=== PATIENT | female | born 1930 | race Caucasian/White ===

== ENCOUNTER 2017-05-14 09:33 | Inpatient (IN) | payer MEDICARE, OTHER ==
[~2017-05-14] VITALS: Ht 162.6 cm; Wt 81.6 kg
[2017-05-14 09:34] VITALS: BP 128/58
[2017-05-14] MEDS ORDERED: VESICARE 5 MG TA5 M1 PO (09:45)
[2017-05-14] MEDS ORDERED: HYDROCHLOROTH12.5 M1 PO (09:45)
[2017-05-14] MEDS ORDERED: LOPRESSOR50 PO (09:45)
[2017-05-14] MEDS ORDERED: MECLIZINE HCL25 MG PO (09:46)
[2017-05-14] MEDS ORDERED: OMEPRAZOLE 20 M20 M1 PO (09:46)
[2017-05-14] MEDS ORDERED: BACLOFEN 10MG T10 MG PO (09:46)
[2017-05-14] MEDS ORDERED: ZOCOR20 MG PO (09:46)
[2017-05-14] MEDS ORDERED: FLONASE 0.05%50 MCG NASAL (09:47)
[2017-05-14] MEDS ORDERED: ARTHRITIS PAIN650 M3 PO (09:47)
[2017-05-14] MEDS ORDERED: ASPIR 8181 M1 PO (09:47)
[2017-05-14 11:00] LABS: HEMATOCRIT 38.4 % (37.0-47.0); HEMOGLOBIN 13.1 gm/dL (12.0-15.0); MCH 32.2 pg (26.0-34.0); MCHC 34.1 g/dL (28.0-37.0); MCV 94.6 fL (80.0-100.0); MPV 7.8 fl. (7.2-11.1); NUCLEATED RBCS 0 /100WBC; PLATELET COUNT* 189 thou/uL (150-400); RBC 4.06 mil/uL (4.20-5.00); RDW-CV 13.6 % (10.5-14.5); WBC 7.4 thou/uL (4.0-11.0)
[2017-05-14 11:08] LABS: ANION GAP 7 mmol/L (7-16); BUN 22 mg/dL (7-18); CALCIUM 8.7 mg/dL (8.5-10.1); CHLORIDE 103 mmol/L (98-107); CO2 29 mmol/L (21-32); GLUCOSE 110 mg/dL (70-99); POTASSIUM 3.9 mmol/L (3.5-5.1); SODIUM 139 mmol/L (136-145)
[2017-05-14 11:09] LABS: APTT 24.3 Seconds (25.0-31.3); INR 1.1; PROTIME 10.5 Seconds (9.20-11.50)
[2017-05-14 11:15] LABS: ABSOLUTE EOSINOPHILS 0.1 thou/uL (0.0-0.7); ABSOLUTE LYMPHOCYTES 0.7 thou/uL (0.8-5.3); ABSOLUTE MONOCYTES 0.7 thou/uL (0.0-1.2); ABSOLUTE NEUTROPHILS 5.9 thou/uL (1.6-8.1); PLATELET ESTIMATE ADEQUATE
[2017-05-14 11:20] LABS: ALBUMIN 3.3 g/dL (3.4-5.0); ALKALINE PHOSPHATASE 48 U/L (46-116); NT-PRO BRAIN NAT PEPTIDE 2325 pg/mL (<300); SGOT 18 U/L (15-37); SGPT 21 U/L (30-65); TOTAL BILIRUBIN 0.7 mg/dL (<0.1-1.0); TOTAL PROTEIN 6.1 g/dL (6.4-8.2); TROPONIN-I LEVEL <0.06 ng/mL (<0.06)
--- NOTE | 2017-05-14 11:34 | NUR ---
PT WAS BROUGHT [id number] UPON REQUEST TO OBTAIN URINE SAMPLE.
[2017-05-14 11:47] LABS: URINE BILIRUBIN NEGATIVE (Negative); URINE BLOOD TRACE (Negative); URINE COLOR YELLOW; URINE GLUCOSE-RANDOM NEGATIVE (Negative); URINE KETONES NEGATIVE (Negative); URINE LEUKOCYTES-REFLEX 1+ (Negative); URINE NITRITE-REFLEX NEGATIVE (Negative); URINE PROTEIN NEGATIVE (Negative); URINE SPECIFIC GRAVITY >= 1.030 (1.005-1.030); URINE UROBILINOGEN 0.2 E.U./dl (0.2-1.0)
[2017-05-14 11:48] LABS: URINE CLARITY SL CLOUDY
[2017-05-14 11:57] LABS: BACTERIA-REFLEX >30 Many /HPF (None Seen); SQUAMOUS >10 Many /LPF (0-3)
[2017-05-14 11:58] LABS: CRYSTALS None Seen /LPF (None Seen); HYALINE CASTS 0-3 Few /LPF (None Seen); URINE RBC None Seen /HPF (0-2)
--- NOTE | 2017-05-14 12:30 | NUR ---
PT BROUGHT MEAL TRAY FROM DIETARY
[2017-05-14 14:52] VITALS: BP 151/64
[2017-05-14 15:21] VITALS: BP 189/82
--- NOTE | 2017-05-14 16:26 | NUR ---
PT ADMITTED TO UNIT AROUND 1600 PT IS ALERT AND ORIENTED X 4 PT DENIES PAIN OR SOA ON RA, PT IS A FALL RISK BED ALARM IS ON PT C/O WEAKNESS AND IS UNSTEADY, PT IS SR ON THE MONITOR, PT IS PLEASANT AND COOPERATIVE, WILL CONTINUE TO MONITOR
[2017-05-14 16:48] VITALS: BP 171/59
--- NOTE | 2017-05-14 17:48 | 2DMMODE ---
[place] [address] 2 D/M-MODE ECHOCARDIOGRAM Name: GISSEL LYONS Room: [address] IN [facility]#: [id number] Admission: 05/14/17 Attend Phys: Jose Urrutia Discharge: Date of : 34 Date of Service: 05/14/17 1748 Report #: [id number] THIS REPORT FOR: //name// APPROVED REPORT Study performed: 05/14/2017 14:26:11 EXAM: Comprehensive 2D, Doppler, and color-flow Echocardiogram Patient Location: In-Patient Room #: er Status: routine BSA: 1.87 HR: 70 bpm BP: 145/55 mmHg Rhythm: NSR Other Information Study Quality: Good Indications Congestive Heart Failure 2D Dimensions LVEF(%): 77.42 (>50%) IVSd: 16.93 (7-11mm) LVOT Diam: 21.51 (18-24mm) LVDd: 40.20 mm PWd: 16.35 (7-11mm) Ascending Ao: 33.28 (22-36mm) LVDs: 21.89 (25-40mm) Aortic Root: 30.90 mm Kingston's LVEF: 77.42 % Volumes Left Atrial Volume (Systole) LA ESV Index: 29.90 mL/m2 Aortic Valve AoV Peak Raymond.: 1.75 m/s AO Peak Gr.: 12.22 mmHg LVOT Max P.90 mmHg AO Mean Gr.: 6.98 mmHg LVOT Mean P.95 mmHg LVOT Max V: 0.99 m/s AO V2 VTI: 39.24 cm LVOT Mean V: 0.64 m/s AMEENA (VTI): 2.23 cm2 LVOT V1 VTI: 24.08 cm AI [place]: 2.05 m/s2 AI PHT: 409.19 [place] [address] 2 D/M-MODE ECHOCARDIOGRAM Name: GISSEL LYONS Room: [address] IN ..#: [id number] Admission: 05/14/17 Attend Phys: Jose Urrutia Discharge: Date of : 34 Date of Service: 05/14/17 1748 Report #: [id number] Mitral Valve E/A Ratio: 2.35 MV Decel. Time: 213.41 ms MV E Max Raymond.: 0.89 m/s MV PHT: 61.89 ms MVA (PHT): 3.55 cm2 TDI E/Lateral E': 6.85 E/Medial E': 8.90 Medial E' Raymond.: 0.10 m/s Lateral E' Raymond.: 0.13 m/s Pulmonary Valve PV Peak Raymond.: 0.86 m/s PV Peak Gr.: 2.93 mmHg Tricuspid Valve TR Peak Gr.: 31.15 mmHg RVSP: 36.00 mmHg Left Ventricle The left ventricle is normal size. There is normal LV segmental wall motion. Moderate concentric left ventricular hypertrophy. Left ventricular systolic function is normal. LVEF is 60-65%. Transmitral Doppler flow pattern suggests restrictive physiology. Right Ventricle The right ventricle is normal size. The right ventricular systolic function is normal. Atria The left atrium size is normal. The right atrium size is normal. Aortic Valve Mild aortic valve sclerosis. Mild aortic regurgitation. There is no aortic valvular stenosis. Mitral Valve The mitral valve is normal in structure. Trace mitral regurgitation. No evidence of mitral valve stenosis. Tricuspid Valve The tricuspid valve is normal in structure. Mild tricuspid regurgitation. The RVSP is 35-40 mmHg. Pulmonic Valve The pulmonary valve is normal in structure. [place] [address] 2 D/M-MODE ECHOCARDIOGRAM Name: LYONSGISSEL Room: [address] IN [facility]#: [id number] Admission: 05/14/17 Attend Phys: Jose Urrutia Discharge: Date of : 34 Date of Service: 05/14/17 1748 Report #: [id number] regurgitation. Great Vessels The aortic root is normal in size. IVC is normal in size and collapses with >50% inspiration Pericardium There is no pericardial effusion. <Conclusion> The left ventricle is normal size. Moderate concentric left ventricular hypertrophy. Left ventricular systolic function is normal. LVEF is 60-65%. Transmitral Doppler flow pattern suggests restrictive physiology. Mild aortic valve sclerosis. Mild aortic regurgitation. Mild tricuspid regurgitation. The RVSP is 35-40 mmHg. <ELECTRONICALLY SIGNED> By: Rickey Caldera MD, FACC 05/14/17 [phone] Rickey Caldera MD, FACC /INF
--- NOTE | 2017-05-14 18:12 | EKG ---
[place] [address] ELECTROCARDIOGRAM REPORT Name: GISSEL LYONS Room: [place] [address] ADM IN M.R.#: [id number] Admission: 05/14/17 Attend Phys: Jose Galvan, Discharge: Date of : 32 Report #: [id number] THIS REPORT FOR: //name// [facility] ED Test Date: 2017-05-14 Test Time: 10:08:20 Pat Name: GISSEL LYONS Department: Room: [facility] Gender: F Airway Controller: Melisa LIN : 1930 Requested By: Mc Myers Order Number: [id number] MD: Rickey Caldera Measurements Intervals [place] Rate: 61 P: 72 TN: 208 QRS: -6 QRSD: 133 T: 3 QT: 444 QTc: 448 Interpretive Statements Sinus rhythm Incomplete right bundle-branch block Borderline T abnormalities, anterior leads No previous ECG available for comparison Electronically Signed On 05-14-2017 18:12:10 CDT by Rickey Caldera [email or web address] <ELECTRONICALLY SIGNED> By: Rickey Caldera MD, [facility] 05/14/17 1812 1008 1008 Rickey Caldera MD, [facility] /EPI
[2017-05-14 20:00] VITALS: BP 156/71
[2017-05-15] VITALS (8 sets, daily range): BP systolic 130–153; BP diastolic 41–93
[2017-05-15 06:04] LABS: HEMATOCRIT 37.2 % (37.0-47.0); HEMOGLOBIN 12.9 gm/dL (12.0-15.0); MCH 32.6 pg (26.0-34.0); MCHC 34.8 g/dL (28.0-37.0); MCV 93.7 fL (80.0-100.0); MPV 8.3 fl. (7.2-11.1); RBC 3.97 mil/uL (4.20-5.00); RDW-CV 13.7 % (10.5-14.5); WBC 5.4 thou/uL (4.0-11.0)
[2017-05-15 06:23] LABS: ALBUMIN 3.4 g/dL (3.4-5.0); ALKALINE PHOSPHATASE 49 U/L (46-116); ANION GAP 9 mmol/L (7-16); BUN 23 mg/dL (7-18); CALCIUM 8.7 mg/dL (8.5-10.1); CHLORIDE 101 mmol/L (98-107); CO2 31 mmol/L (21-32); CREATININE 1.1 mg/dL (0.6-1.3); GLUCOSE 97 mg/dL (70-99); MAGNESIUM 1.9 mg/dL (1.8-2.4); POTASSIUM 3.4 mmol/L (3.5-5.1); SGOT 19 U/L (15-37); SGPT 21 U/L (30-65); SODIUM 141 mmol/L (136-145); TOTAL BILIRUBIN 0.9 mg/dL (<0.1-1.0); TOTAL PROTEIN 6.4 g/dL (6.4-8.2); TROPONIN-I LEVEL <0.06 ng/mL (<0.06)
--- NOTE | 2017-05-15 08:30 | NUR ---
ASSUMED PT. CARE AND RECEIVED REPORT AT 0730. PT A/OX4, VSS, MONITOR ON TRACING SB 58. PT. DENIES PAIN, C/O HEADACHE. ON RA @ 93%. FULL ASSESSMENT COMPLETED, REFER TO CHARTING. PT. DENIES CURRENT DIZZINESS, ORTHOSTATICS COMPLETED, WNL. FULL ASSESSMENT COMPLETED, REFER TO CHARTING. PT. UP TO CHAIR FOR BREAKFAST. CALL LIGHT IN REACH, FALL PRECAUTIONS IN PLACE. WILL CONTINUE WITH PLAN OF CARE.
[2017-05-15 11:37] LABS: CALCIUM 9.1 mg/dL (8.5-10.1); CREATININE 1.1 mg/dL (0.6-1.3); MAGNESIUM 1.9 mg/dL (1.8-2.4); POTASSIUM 3.3 mmol/L (3.5-5.1)
--- NOTE | 2017-05-15 18:22 | NUR ---
PT. STABLE THROUGH OUT SHIFT. UP TO CHAIR FOR BREAKFAST AND LUNCH. MULTIPLE FRIENDS/FAMILY VISITING. PT. HAS DENIED DIZZINES THIS SHIFT. APPETITE GOOD, NO FURTHER COMPLAINTS OF HEADACHE. HOURLY ROUNDING COMPLETED THROUGH OUT THE DAY FOR PT. SAFETY.
[2017-05-16 00:12] VITALS: BP 127/43
--- NOTE | 2017-05-16 01:34 | NUR ---
PT ALERT ORIENTED. UP TO BSC WITH ONE PERSON ASSIST. TELEMETRY SHOWS SB. USES CALL LIGHT APPROPRIATELY. WILL CONTINUE TO MONITOR.
[2017-05-16 04:00] VITALS: BP 140/58
[2017-05-16 04:13] LABS: HEMATOCRIT 36.5 % (37.0-47.0); HEMOGLOBIN 12.6 gm/dL (12.0-15.0); MCH 32.3 pg (26.0-34.0); MCHC 34.4 g/dL (28.0-37.0); MCV 93.7 fL (80.0-100.0); MPV 8.1 fl. (7.2-11.1); RBC 3.89 mil/uL (4.20-5.00); RDW-CV 13.8 % (10.5-14.5); WBC 4.7 thou/uL (4.0-11.0)
[2017-05-16 04:36] LABS: ALBUMIN 3.1 g/dL (3.4-5.0); CALCIUM 8.2 mg/dL (8.5-10.1); CREATININE 1.2 mg/dL (0.6-1.3); MAGNESIUM 1.9 mg/dL (1.8-2.4); POTASSIUM 3.3 mmol/L (3.5-5.1); TOTAL BILIRUBIN 0.7 mg/dL (<0.1-1.0)
--- NOTE | 2017-05-16 06:40 | NUR ---
AM K+ 3.3. POTASSIUM 40MEQ GIVEN.
--- NOTE | 2017-05-16 09:30 | NUR ---
ASSUMED PT. CARE AND RECEIVED REPORT AT 0730. PT A/OX4, VSS, MONITOR ON TRACING SB 58. PT C/O OF GENERAL ACHES, TYLENOL GIVEN PER APR. FULL ASSESSMENT COMPELTED, REFER TO CHARTING. PT. UP TO CHAIR FOR BREAKFAST. CALL LIGHT IN REACH, WILL CONTINUE WITH PLAN OF CARE.
[2017-05-16 12:00] VITALS: BP 126/62
[2017-05-16 16:00] VITALS: BP 143/51
--- NOTE | 2017-05-16 18:59 | NUR ---
PT. STABLE THROUGH OUT SHIFT. UP TO CHAIR X 2. PT. REPORTS A DECREASE IN URINE OUTPUT AFTER RECEIVING LAST DOSE OF LASIX. ANTICIPATE DC TOMORROW, PT. AGREEABLE TO PLAN. HOURLY ROUNDING COMPLETED THROUGH OUT THE DAY FOR PT. SAFETY.
[2017-05-16 20:00] VITALS: BP 146/58
[2017-05-17] VITALS (7 sets, daily range): BP systolic 123–142; BP diastolic 46–99
--- NOTE | 2017-05-17 05:01 | NUR ---
PATIENT PROGRESSING TOWARDS GOALS: PATIENT WAS UP TO CHAIR UNTIL 2129. PATIENT HAS SLEPT A MAJORITY OF SHIFT. PATIENT HAD C/O GENERAL ACHES RELIEVED WITH ONE DOSE OF ACETAMINOPHEN. PATIENT REMAINS ON ROOM AIR WITH SATS >92%. VSS. HOURLY ROUNDING OBSERVED. CALL LIGHT WITHIN REACH.
--- NOTE | 2017-05-17 06:16 | NUR ---
PATIENT NOTED TO BE IN AFIB. EKG TO CONFIRM. RATE IS CONTROLLED. PATIENT REPORTS NO HISTORY. YOUCALLMD SENT TO DR. GONZALEZ. NO NEW ORDERS RECIEVED.
--- NOTE | 2017-05-17 10:11 | NUR ---
ASSUMED PATIENT CARE AT 7:15 RECEIVED REPORT . PATIENT ALERT , AWAKE ORIENTED X4. VITALS SIGNS TAKEN. BP 142/99. A FIB THE MONITOR, HEART VARIES FROM 120 TO 140. PATIENT IS ASYMPTOMATIC. NO COMPLAIN ABOUT PAIN AT THIS MOMENT. IV LINE PATENT. NO FLUID INFUSING. BP PRESSURE AND HEART RATE MEDICATION TO BE ADMININSTERED. PATIENT DOES NOT EXPRESS ANY CONCERN AT THIS MOMENT. WILL MONITOR AND FOLLOW UP FOR CARDIAC RYTHM
--- NOTE | 2017-05-17 10:18 | NUR ---
PATIENT HEART RYTHM CONVERTED TO SINUS RYTHM AT AROUND 1000 AM. HEART RATE VARIES FROM 65 TO 70. BP AND HEART RATE MEDICATIONS WERE ADMINISTERED PRIOR TO THIS TIME. ANTIBIOTICS IV WAS ADMINISTERED SCHEDULED. WILL CONTINUE TO MONITOR HEART RYHTM. PLANNING ON DISCHARGING PATIENT TODAY IF HEALTH STATUS STABLE.
--- NOTE | 2017-05-17 12:26 | EKG ---
[place] [address] ELECTROCARDIOGRAM REPORT Name: GISSEL LYONS Room: [place] [address] ADM IN M.R.#: [id number] Admission: 05/14/17 Attend Phys: Jose Galvan, Discharge: Date of : 32 Report #: [id number] THIS REPORT FOR: //name// [facility] Test Date: 2017-05-17 Test Time: 06:04:28 Pat Name: GISSEL LYONS Department: Room: [place] [address] Gender: F Signal Constructor: RICK : 1930 Requested By: Blaine Hester Order Number: [id number] Bladimir MD: Catrachito Rosado Measurements Intervals [place] Rate: 96 P: [place]: QRS: 5 QRSD: 112 T: -1 QT: 368 QTc: 465 Interpretive Statements Atrial fibrillation Borderline intraventricular conduction delay RSR' in V1 or V2, right VCD or RVH Compared to ECG 05/14/2017 10:08:20 Sinus rhythm no longer present Electronically Signed On 05-17-2017 12:25:59 CDT by Catrachito Rosado [email or web address] <ELECTRONICALLY SIGNED> By: Catrachito Rosado MD, [facility] 05/17/17 1225 0604 0604 Catrachito Rosado MD, [facility] /EPI
--- NOTE | 2017-05-17 15:17 | NUR ---
MET WITH PT TO DISCUSS HOME SITUATION/DC PLANNING. PT LIVES WITH HER DTR AND X[place]. PT IS ABLE TO DO HER OWN ADLS, USES WALKER TO GET AROUND. STATES SHE DOESN'T GET OUT TOO MUCH. HER SISTER AND FAMILY LIVE NEXT DOOR AND VISIT OFTEN. PT HAS BEEN TO INPT REHAB IN PAST BUT NOT HAD HH. SHE IS INTERESTED IN HH. WOULD LIKE TO USE [facility]. CALLED AND [facility] STATES THEY DO NOT SERVICE THAT AREA. TALKED WITH PT MORE ABOUT OPTIONS, CHOSE [facility]. WILL ARRANGE AT DC. PT STTAES HER DTR ASSISTS HER AUTISTIC CHILD SOME AND PT MAY NEED MORE ASSIST AT HOME. WILL FOLLOW
--- NOTE | 2017-05-17 17:47 | CON ---
[address] [address] CONSULTATION Name: GISSEL LYONS Room: [address] IN .R.#: [id number] Admission: 05/14/17 Attend Phys: Jose Galvan, Discharge: Date of : 32 Report #: [id number] THIS REPORT FOR: //name// CC: COLETTE Galvan DATE OF SERVICE: 05/17/2017 CARDIOLOGY CONSULTATION HISTORY OF PRESENT ILLNESS: The patient is an 86-year-old single white female who was asked to see in the hospital today after she had an episode of atrial fibrillation. The patient states that she had rheumatic fever as a child with a heart murmur. In 1995, she apparently had a syncopal spell. She apparently was admitted here to [facility] and underwent hip surgery. Cardiac evaluation at that time following a syncopal spell showed no significant heart disease. She apparently wore a monitor at that time. She notes about 12 years ago, she was having chest pain, apparently underwent an outpatient cardiac catheterization in [facility] and found to have no significant coronary artery disease. She does have a long history of dizzy spells. She complained she feels lightheaded as if the room is spinning. This can occur while sitting or standing. This has been going on for years. She denies significant chest pain, shortness of breath. She does note episodes where her heart will race. She denied any recent vomiting, diarrhea, bleeding. She actually came to the Emergency Room 4 days ago here at [facility]. She complained of fatigue, feeling lightheaded, noted the room was spinning. She could hardly even walk. She had a headache, some blurred vision. She was admitted for further evaluation and treatment. On the monitor, the patient was noted to be in sinus rhythm. However, today, the patient appeared to go into atrial fibrillation with an increased ventricular response rate. This persisted but then she converted to sinus rhythm. PAST MEDICAL HISTORY: Otherwise, significant for hip surgery, tonsillectomy, cataract extraction. She has a history of hypertension, hyperlipidemia. No history of diabetes. HOME MEDICATIONS: Consisted of aspirin, baclofen, Flonase, HCTZ, meclizine, metoprolol, omeprazole, simvastatin, VESIcare. ALLERGIES: She has no known drug allergies. FAMILY HISTORY: Her father has heart disease. SOCIAL HISTORY: She has been twice, lives in [place] with her daughter. No [place] [address] CONSULTATION Name: GISSEL LYONS Room: [address] IN [facility].#: [id number] Admission: 05/14/17 Attend Phys: Jose Galvan, Discharge: Date of : 32 Report #: [id number] REVIEW OF SYSTEMS: She has had no history of stroke, asthma, peptic ulcer disease, liver disease, kidney disease or cancer. She has arthritis in her knees and received injections in the past. No history of psychiatric illness. No chronic skin condition. PHYSICAL EXAMINATION: GENERAL: Revealed an elderly frail appearing female sitting in a chair. She appeared in no acute distress. VITAL SIGNS: She had a blood pressure of 120/60, pulse 70. She was afebrile. HEENT: She was anicteric, conjunctiva pink. Mucous members appear moist. NECK: Veins nondistended. No carotid bruits. CHEST: Clear to auscultation. CARDIOVASCULAR: Regular rate and rhythm. No significant murmur. ABDOMEN: Soft, nontender. EXTREMITIES: Had no edema. Dorsalis pedis pulse 1+ bilaterally. SKIN: Cool and dry. NEUROLOGIC: Nonfocal. LYMPH: No adenopathy. MUSCULOSKELETAL: She did have some deformity of the interphalangeal joints. Her ECG on admission showed a sinus rhythm, left ventricular hypertrophy, incomplete right bundle branch block. ECG this morning actually showed atrial fibrillation with an increased ventricular response rate. Currently, she appears to be in sinus rhythm. Workup since her admission, she actually had an echocardiogram done 3 days ago after her admission that showed left ventricular hypertrophy, ejection fraction 60%, mild aortic sclerosis, mild aortic and tricuspid insufficiency. Her x-ray since her admission included CT scan of the head without contrast that showed cerebral atrophy, otherwise unremarkable. Her chest x-ray on admission showed small effusion. LABORATORY DATA: Sodium 139, creatinine 1.2, glucose 98. Liver function studies were normal. White blood cell count 4.7, hemoglobin 12.6. IMPRESSION AND RECOMMENDATIONS: 1. Paroxysmal atrial fibrillation. Suspect she has had recurrent episodes. At this time, I will recommend switching from metoprolol to sotalol. The patient does not appear to be a very good candidate for anticoagulation because of her history of dizzy spells. 2. Hypertension. The patient has been on a beta denise and diuretic. 3. Hyperlipidemia. The patient is on a statin drug. 4. Dizzy spells. Symptoms consistent with vertigo. <ELECTRONICALLY SIGNED> By: Catrachito Rosado MD, [facility] 05/17/17 1747 1312 [id number] Rosado MD, FACC /nt
--- NOTE | 2017-05-17 18:21 | NUR ---
PATIENT CARDIAC RYTHM HAS BEEN STABLE SINCE 1000 AM. SINUS RYTHM ON THE MONITOR. HEART RATE VARIES BETWEEN 60 ANF 75. NO COMPLAIN OF PAIN DURING THE WHOLE SHIFT. IV ANTIBIOTICS ADMINISTERES SCHEDULED. PATIENT HAD ONE EPISODE OF BM, GETS UP TO BED SIDE COMMODE USING A WALKER WITH ASSISTANCE. OUT OF BED TO CHAIR. CONSUMED WHOLE MEALS. DAUGHTER ARRIVED IN THE [facility] , UPDATE GIVEN REGARDING CARE. PATIENT CURRENTLY ON SOTALOL LOAD PRIOR TO DISCHARGE.
[2017-05-18 04:00] VITALS: BP 124/47
--- NOTE | 2017-05-18 04:53 | NUR ---
PATIENT REMAINS STABLE THIS SHIFT ON ROOM AIR WITH SATS >92% AND VSS. PATIENT A&OX4. PATIENT DENIES DIZZINESS. PATIENT HAD C/O GENERAL ACHES PRIOR TO BEDTIME, ACETAMINOPHEN ADMINISTERED WITH HS MEDICATIONS AND PATIENT SLEEPING AFTER. PATIENT HAS RESTED WELL THIS SHIFT. HOURLY ROUNDING OBSERVED. CALL LIGHT WITHIN REACH.
[2017-05-18 06:30] LABS: CHOLESTEROL 144 mg/dL (<200); HDL CHOLESTEROL 52 mg/dL (>40); LDL CHOLESTEROL 65 mg/dL (<100); TC:HDL 2.8 Ratio (Not establshd); TRIGLYCERIDE 138 mg/dL (<150); VLDL 28 mg/dL (<40)
[2017-05-18 06:38] LABS: SERUM ASSESSMENT Clear
[2017-05-18 08:00] VITALS: BP 142/44
--- NOTE | 2017-05-18 09:01 | NUR ---
ASSUMED PATIENT CARE THIS MORNING AT 7:15. REPORT RECEIVED. PATIENT IS CURRENTLY SLEEPING. VITAL SIGNS TAKEN. WITHIN NORMAL LIMIT EXCEPT HEART RATE OF 52. PATIENT IS ASYMPTOMATIC. NO SOIB NOTICED, NO DIZINESS. SINUS BRADYCARDIA ON THE MONITOR O2 SATURATION 98 ON RA. NO COMPLAIN OF PAIN. MORNIG MED TO BE ADMINISTERED. MORNING ASSESSEMENT PERFORMED. LUTZ ON GETTING PATIENT OOB TO CHAIR DURING THE DAY TO PROMOTE ACTIVITY. WILL CONTINUE TO MONITOR
--- NOTE | 2017-05-18 10:58 | EKG ---
[place] [address] ELECTROCARDIOGRAM REPORT Name: GISSEL LYONS Room: [place] [address] ADM IN .R.#: [id number] Admission: 05/14/17 Attend Phys: Jose Galvan, Discharge: Date of : 32 Report #: [id number] THIS REPORT FOR: //name// [facility] Test Date: 2017-05-18 Test Time: 09:29:00 Pat Name: GISSEL LYONS Department: Room: [place] [address] Gender: F Overhead Irrigator: ARUNA : 1930 Requested By: Catrachito Rosado Order Number: [id number] Bladimir MD: Catrachito Rosado Measurements Intervals [place] Rate: 57 P: 57 PA: 193 QRS: 15 QRSD: 125 T: 3 QT: 483 QTc: 471 Interpretive Statements Sinus bradycardia with early transition Nonspecific intraventricular conduction delay Compared to ECG 05/17/2017 06:04:28 Atrial fibrillation no longer present Electronically Signed On 05-18-2017 10:57:55 CDT by Catrachito Rosado [email or web address] <ELECTRONICALLY SIGNED> By: Catrachito Rosado MD, [facility] 05/18/17 1057 0929 0929 Catrachito Rosado MD, [facility] /EPI
[2017-05-18 12:00] VITALS: BP 144/54
[2017-05-18 16:41] VITALS: BP 144/51
--- NOTE | 2017-05-18 18:16 | NUR ---
PATIENT MAINTAIN STABLE STATUS FOR THE DAY. OUT OF BED TO CHAIR . CONSUME ALL MEALS. GETS UP AND WALK WITH PT. BP AND HR NOMRAL , SINUS ESTRELLITA FOR MOST OF THE SHIFT. IV ANTIBIOTICS ADMINISTERED SSCHEDULED. NOW WATCHING TV .
[2017-05-18 20:00] VITALS: BP 133/37
[2017-05-19] VITALS: BP 124/41
[2017-05-19 04:34] VITALS: BP 134/42
--- NOTE | 2017-05-19 04:38 | NUR ---
ASSUMED CARE OF PT AT 1915. NURSING ASSESSMENT COMPLETED AT START OF SHIFT, PT VOICED NO CONCERNS, PT ON TELE MONITOR TRACING SINUS BRADICARDIA IN MID 50'S THIS SHIFT. HOURLY ROUNDING COMPLETED, FALL PRECAUTIONS IN PLACE, PT PROGRESSING TOWARDS GOALS. NO FALLS THIS SHIFT. CALL LIGHT WITHIN REACH.
--- NOTE | 2017-05-19 10:06 | EKG ---
[place] [address] ELECTROCARDIOGRAM REPORT Name: GISSEL LYONS Room: [place] [address] ADM IN .R.#: [id number] Admission: 05/14/17 Attend Phys: Jose Galvan, Discharge: Date of : 32 Report #: [id number] THIS REPORT FOR: //name// [facility] Test Date: 2017-05-19 Test Time: 08:15:16 Pat Name: GISSEL LYONS Department: Room: [place] [address] Gender: F Air Twist Operator: : 1930 Requested By: Catrachito Rosado Order Number: [id number] Bladimir MD: Catrachito Rosado Measurements Intervals [place] Rate: 53 P: 60 [place]: 209 QRS: 11 QRSD: 125 T: 3 QT: 514 QTc: 483 Interpretive Statements Sinus rhythm early transition Nonspecific intraventricular conduction delay Compared to ECG 05/18/2017 09:29:00 Sinus bradycardia no longer present Electronically Signed On 05-19-2017 10:06:16 CDT by Catrachito Rosado [email or web address] <ELECTRONICALLY SIGNED> By: Catrachito Rosado MD, [facility] 05/19/17 1006 4 4 Catrachito Rosado MD, [facility] /EPI
--- NOTE | 2017-05-19 11:01 | NUR ---
RECEIVED REPORT. ASSUMED CARE OF PT AT 0730. PT A&O X4. VSS. O2 SAT 93% ON RA. PLANT SCIENTIST IN PLACE TRACING SB WITH 1 DEGREE. AM ASSESSMENT AND VITALS COMPELTED CHARTED. IV SALINE LOCKED. PT DENIES PAIN OR DISCOMFORT. PT EATING AND DRINKING WITHOUT ISSUE. PT UP TO BATHROOM WITH STANDBY ASSIST, VOIDING WITHOUT ISSUE. PT INFORMED OF PLAN OF CARE- PT COMMUNICATES UNDERSTANDING. PT TO DC TODAY. PT CURRENTLY SITTING IN BEDSIDE CHAIR. CALL LIGHT IS WITHIN REACH, FALL PRECAUTIONS ARE IN PLACE. WILL CONTINUE TO MONITOR.
--- NOTE | 2017-05-19 11:30 | NUR ---
ORDER NOTED FOR DC HOME WITH HH. PT HAD CHOSEN [facility]. CALLED AND FAXED DC ORDERS TO [facility]. MET WITH PT AND DTR. NO OTHER NEEDS ID'D
[2017-05-19] MEDS ORDERED: SORINE 80 MG TA80 MG PO (11:32)
[2017-05-19 11:40] VITALS: BP 150/39
--- NOTE | 2017-05-19 12:18 | NUR ---
DISCHARGE ORDERS RECEIVED. DISCHARGE COMPLETED DOCUMENTED. DISCHARGE SUMMARY AND CARE NOTES GONE OVER WITH THE PT AND DAUGHTER, BOTH COMMUNICATE UNDERSTANDING. IV AND RAILWAY SHUNTER REMOVED. SCRIPT GIVEN. CARE NOTES GIVEN. ALL BELONGINGS GATHERED AND SENT WITH THE PT. VSS AT TIME OF DC. PT EATING AND DRINKING WITHOUT ISSUE. VOIDING WITHOUT ISSUE. PT TO LEAVE UNIT IN WC WITH NURSING STAFF. PT TO LEAVE HOSPITAL WITH DAUGHTER IN CAR.
== END 2017-05-19 13:00 | disposition home health service (06) | DRG 292 ==
LOC: M.ERS 09:33 → M.2W 11:39 → M.TBA-ER 11:39 → M.2W 15:14
PROVIDERS: Emergency Medicine; Internal Medicine Cardiovascular Disease; ADMIT Family Medicine
DX: I11.0 Hypertensive heart disease with heart failure (principal); N39.0 Urinary tract infection, site not specified; J98.11 Atelectasis; I50.33 Acute on chronic diastolic (congestive) heart failure; E86.0 Dehydration; R42 Dizziness and giddiness; M19.90 Unspecified osteoarthritis, unspecified site; R55 Syncope and collapse; E78.5 Hyperlipidemia, unspecified; I48.0 Paroxysmal atrial fibrillation; E87.6 Hypokalemia; R79.89 Other specified abnormal findings of blood chemistry; Z82.49 Family history of ischemic heart disease and other diseases of the circulatory system; Z79.82 Long term (current) use of aspirin; Z79.899 Other long term (current) drug therapy; Z79.01 Long term (current) use of anticoagulants

== ENCOUNTER 2018-01-11 11:36 | Emergency (ER) | payer MEDICARE, OTHER ==
[~2018-01-11] VITALS: Ht 162.6 cm; Wt 79.4 kg
[~2018-01-11 11:36] MED LIST: ARTHRITIS PAIN650 M3 PO; ASPIR 8181 M1 PO; BACLOFEN 10MG T10 MG PO; FLONASE 0.05%50 MCG NASAL; HYDROCHLOROTH12.5 M1 PO; LOPRESSOR50 PO; MECLIZINE HCL25 MG PO; OMEPRAZOLE 20 M20 M1 PO; SORINE 80 MG TA80 MG PO; VESICARE 5 MG TA5 M1 PO; ZOCOR20 MG PO
[2018-01-11] MEDS ORDERED: CLONIDINE0.1 PO (11:55)
[2018-01-11 12:26] LABS: ABSOLUTE BASOPHILS 0.1 thou/uL (0.0-0.2); ABSOLUTE EOSINOPHILS 0.1 thou/uL (0.0-0.7); ABSOLUTE LYMPHOCYTES 0.9 thou/uL (0.8-5.3); ABSOLUTE MONOCYTES 0.5 thou/uL (0.0-1.2); ABSOLUTE NEUTROPHILS 2.5 thou/uL (1.6-8.1); BASOPHILS 1.4 %; EOSINOPHILS 1.9 %; HEMATOCRIT 36.5 % (37.0-47.0); HEMOGLOBIN 12.4 gm/dL (12.0-15.0); LYMPHOCYTES 22.5 %; MCH 33.1 pg (26.0-34.0); MCHC 34.1 g/dL (28.0-37.0); MCV 97.3 fL (80.0-100.0); MONOCYTES 12.7 %; NUCLEATED RBCS 0 /100WBC; PLATELET COUNT* 205 thou/uL (150-400); POLYS 61.5 %; RBC 3.75 mil/uL (4.20-5.00); RDW-CV 12.9 % (10.5-14.5); WBC 4.1 thou/uL (4.0-11.0)
[2018-01-11 12:32] LABS: ANION GAP 8 mmol/L (7-16); BUN 21 mg/dL (7-18); CALCIUM 9.2 mg/dL (8.5-10.1); CHLORIDE 98 mmol/L (98-107); CO2 30 mmol/L (21-32); CREATININE 0.9 mg/dL (0.6-1.3); GLUCOSE 84 mg/dL (70-99); POTASSIUM 4.1 mmol/L (3.5-5.1); SODIUM 136 mmol/L (136-145)
[2018-01-11 12:38] LABS: APTT 28.2 Seconds (25.0-31.3); PROTIME 10.5 Seconds (9.20-11.50)
[2018-01-11 12:43] LABS: ALBUMIN 3.7 g/dL (3.4-5.0); ALKALINE PHOSPHATASE 55 U/L (46-116); NT-PRO BRAIN NAT PEPTIDE 539 pg/mL (<300); SGOT 22 U/L (15-37); SGPT 20 U/L (30-65); TOTAL BILIRUBIN 0.8 mg/dL (<0.1-1.0); TOTAL PROTEIN 6.8 g/dL (6.4-8.2)
[2018-01-11 12:56] LABS: TROPONIN-I LEVEL <0.06 ng/mL (<0.06)
[2018-01-11 14:05] LABS: URINE BILIRUBIN NEGATIVE (Negative); URINE BLOOD NEGATIVE (Negative); URINE CLARITY CLEAR; URINE COLOR YELLOW; URINE GLUCOSE-RANDOM NEGATIVE (Negative); URINE KETONES NEGATIVE (Negative); URINE LEUKOCYTES-REFLEX NEGATIVE (Negative); URINE NITRITE-REFLEX NEGATIVE (Negative); URINE PROTEIN NEGATIVE (Negative); URINE SPECIFIC GRAVITY 1.015 (1.005-1.030); URINE UROBILINOGEN 0.2 E.U./dl (0.2-1.0)
[2018-01-11 14:57] VITALS: BP 170/67
--- NOTE | 2018-01-11 16:30 | EKG ---
[place] [address] ELECTROCARDIOGRAM REPORT Name: GISSEL LYONS Room: [facility]#: [id number] Admission: 01/11/18 Attend Phys: Discharge: 01/11/18 Date of : 32 Report #: [id number] THIS REPORT FOR: //name// [facility] ED Test Date: 2018-01-11 Test Time: 11:47:57 Pat Name: GISSEL LYONS Department: Room: Gender: F Media Law Faculty Member: Zeferino TRUONG : 1930 Requested By: Kayla Houston Order Number: [id number] MD: Nolan Castro Measurements Intervals [place] Rate: 58 P: 69 [place]: 209 QRS: 0 QRSD: 115 T: 9 QT: 452 QTc: 445 Interpretive Statements Sinus rhythm Incomplete right bundle branch block Compared to ECG 05/19/2017 08:15:16 Incomplete right bundle-branch block now present Intraventricular conduction delay no longer present Electronically Signed On 01-11-2018 16:30:37 INSURANCE LOSS ASSESSOR by Nolan Castro [email or web address] <ELECTRONICALLY SIGNED> By: Nolan Castro MD, FAC 01/11/18 1630 1147 1147 Nolan Castro MD, [facility] /EPI
== END 2018-01-11 14:58 | disposition home or self-care (01) ==
LOC: M.ERS 11:36
PROVIDERS: Personal Emergency Response Attendant
DX: I11.0 Hypertensive heart disease with heart failure (principal); I50.9 Heart failure, unspecified; M46.90 Unspecified inflammatory spondylopathy, site unspecified

== ENCOUNTER 2018-01-20 14:55 | Emergency (ER) | payer MEDICARE, OTHER ==
[~2018-01-20] VITALS: Ht 162.6 cm; Wt 79.4 kg
--- NOTE | ~2018-01-20 | PROC ---
[address] [address] PROCEDURE REPORT Name: GISSEL LYONS Room: [facility] Jorge#: [id number] Admission: 01/20/18 Attend Phys: Discharge: 01/20/18 Date of : 34 Report #: [id number] THIS REPORT FOR: //name// For GI report, Please see the Provation report in Perceptive 7 content. By: 1228Medical Records Staff [facility] /DASHA
[~2018-01-20 14:55] MED LIST changes: +CLONIDINE0.1 PO
[2018-01-20 15:17] LABS: ABSOLUTE EOSINOPHILS 0.1 thou/uL (0.0-0.7); ABSOLUTE MONOCYTES 0.4 thou/uL (0.0-1.2); ABSOLUTE NEUTROPHILS 3.6 thou/uL (1.6-8.1); BASOPHILS 0.7 %; EOSINOPHILS 2.4 %; HEMATOCRIT 37.7 % (37.0-47.0); HEMOGLOBIN 12.8 gm/dL (12.0-15.0); LYMPHOCYTES 19.9 %; MCV 97.1 fL (80.0-100.0); MONOCYTES 7.9 %; MPV 7.6 fl. (7.2-11.1); NUCLEATED RBCS 0 /100WBC; PLATELET COUNT* 208 thou/uL (150-400); POLYS 69.1 %; RBC 3.89 mil/uL (4.20-5.00); WBC 5.2 thou/uL (4.0-11.0)
[2018-01-20 15:21] LABS: CALCIUM 8.8 mg/dL (8.5-10.1); POTASSIUM 3.6 mmol/L (3.5-5.1)
[2018-01-20 15:25] LABS: ALBUMIN 3.9 g/dL (3.4-5.0); TOTAL BILIRUBIN 0.7 mg/dL (<0.1-1.0); TOTAL PROTEIN 7.1 g/dL (6.4-8.2)
[2018-01-20 15:26] LABS: APTT 27.5 Seconds (25.0-31.3); PROTIME 10.3 Seconds (9.20-11.50)
[2018-01-20 17:13] VITALS: BP 167/57
--- NOTE | 2018-01-21 12:33 | EKG ---
[place] [address] ELECTROCARDIOGRAM REPORT Name: GISSEL LYONS Room: [facility]#: [id number] Admission: 01/20/18 Attend Phys: Discharge: 01/20/18 Date of : 32 Report #: [id number] THIS REPORT FOR: //name// [facility] ED Test Date: 2018-01-20 Test Time: 15:12:43 Pat Name: GISSEL MORLEYMONS Department: Room: Gender: F Screed Operator: Melisa AVILEZ : 1930 Requested By: Shaan Dunne Order Number: [id number] MD: Nolan Castro Measurements Intervals [place] Rate: 67 P: 61 [place]: 201 QRS: 0 QRSD: 133 T: 16 QT: 446 QTc: 471 Interpretive Statements Sinus rhythm Nonspecific intraventricular conduction delay Compared to ECG 01/11/2018 11:47:57 Intraventricular conduction delay now present Incomplete right bundle-branch block no longer present Electronically Signed On 01-21-2018 12:33:24 AVIATION SAFETY TECHNICIAN by Nolan Castro [email or web address] <ELECTRONICALLY SIGNED> By: Nolan Castro MD, FACC 01/21/18 1233 1512 1512 Nolan Castro MD, FAC /EPI
== END 2018-01-20 17:14 | disposition home or self-care (01) ==
LOC: M.SUR 14:55 → M.ERS 14:55 → M.SUR 17:14
PROVIDERS: Family Medicine
DX: T18.128A Food in esophagus causing other injury, initial encounter (principal); I48.91 Unspecified atrial fibrillation; M46.90 Unspecified inflammatory spondylopathy, site unspecified; I11.0 Hypertensive heart disease with heart failure; I50.9 Heart failure, unspecified; X58.XXXA Exposure to other specified factors, initial encounter; Y93.89 Activity, other specified; Y92.89 Other specified places as the place of occurrence of the external cause; Y99.8 Other external cause status

== ENCOUNTER 2018-02-17 10:13 | Emergency (ER) | payer MEDICARE, OTHER ==
[~2018-02-17] VITALS: Ht 162.6 cm; Wt 78.5 kg
[2018-02-17 11:10] LABS: URINE BILIRUBIN NEGATIVE (Negative); URINE BLOOD 3+ (Negative); URINE CLARITY CLEAR; URINE COLOR YELLOW; URINE GLUCOSE-RANDOM NEGATIVE (Negative); URINE KETONES NEGATIVE (Negative); URINE PROTEIN 2+ (Negative); URINE UROBILINOGEN 0.2 E.U./dl (0.2-1.0)
[2018-02-17 11:11] LABS: URINE LEUKOCYTES-REFLEX 2+ (Negative); URINE NITRITE-REFLEX POSITIVE (Negative)
[2018-02-17 11:33] LABS: SQUAMOUS 4-10 Moderate /LPF (0-3)
[2018-02-17 11:34] LABS: CASTS None Seen /LPF (None Seen); CRYSTALS None Seen /LPF (None Seen); MUCUS None Seen strn/LPF (None Seen)
[2018-02-17 11:39] LABS: HEMATOCRIT 37.1 % (37.0-47.0); HEMOGLOBIN 12.8 gm/dL (12.0-15.0); MCH 33.2 pg (26.0-34.0); MCHC 34.3 g/dL (28.0-37.0); MCV 96.7 fL (80.0-100.0); MPV 7.2 fl. (7.2-11.1); NUCLEATED RBCS 0 /100WBC; PLATELET COUNT* 205 thou/uL (150-400); RBC 3.84 mil/uL (4.20-5.00); RDW-CV 13.1 % (10.5-14.5); WBC 9.7 thou/uL (4.0-11.0)
[2018-02-17 11:49] LABS: CALCIUM 9.1 mg/dL (8.5-10.1); CREATININE 0.9 mg/dL (0.6-1.3); POTASSIUM 3.8 mmol/L (3.5-5.1)
[2018-02-17 11:53] LABS: ALBUMIN 3.6 g/dL (3.4-5.0); TOTAL BILIRUBIN 0.8 mg/dL (<0.1-1.0); TOTAL PROTEIN 6.8 g/dL (6.4-8.2)
[2018-02-17 12:11] LABS: ABSOLUTE LYMPHOCYTES 1.1 thou/uL (0.8-5.3); ABSOLUTE MONOCYTES 0.7 thou/uL (0.0-1.2); ANISOCYTOSIS 1+; PLATELET ESTIMATE ADEQUATE; POIKILOCYTOSIS 1+
[2018-02-17] MEDS ORDERED: LEVAQUIN 500 M500 M2 PO (13:06)
[2018-02-17] MEDS ORDERED: PYRIDIUM100 M1 PO (13:06)
[2018-02-17] MEDS ORDERED: ONDANSETRON HCL4 M2 PO (13:08)
[2018-02-17 13:49] VITALS: BP 155/59
== END 2018-02-17 13:50 | disposition home or self-care (01) ==
LOC: M.ERS 10:13
PROVIDERS: Nurse Practitioner Family
DX: N39.0 Urinary tract infection, site not specified (principal); I11.0 Hypertensive heart disease with heart failure; I50.9 Heart failure, unspecified; I48.91 Unspecified atrial fibrillation; M13.88 Other specified arthritis, other site

== ENCOUNTER → 2018-03-25 | Outpatient (CLI) | payer MEDICARE, OTHER ==
[~2018-03-25] MED LIST changes: +LEVAQUIN 500 M500 M2 PO; +ONDANSETRON HCL4 M2 PO; +PYRIDIUM100 M1 PO
== END ==
LOC: M.RAD 09:28
DX: R13.12 Dysphagia, oropharyngeal phase (principal)

== ENCOUNTER 2018-08-16 08:55 | Emergency (ER) | payer MEDICARE, OTHER ==
[~2018-08-16] VITALS: Ht 162.6 cm; Wt 78.5 kg
[2018-08-16] MEDS ORDERED: ELIQUIS5 MG PO (08:59)
[2018-08-16 09:38] VITALS: BP 177/79
== END 2018-08-16 09:39 | disposition home or self-care (01) ==
LOC: M.ERS 08:55
DX: T24.212A Burn of second degree of left thigh, initial encounter (principal); T24.211A Burn of second degree of right thigh, initial encounter; T31.0 Burns involving less than 10% of body surface; I11.0 Hypertensive heart disease with heart failure; I50.9 Heart failure, unspecified; I48.91 Unspecified atrial fibrillation; M46.86 Other specified inflammatory spondylopathies, lumbar region; Z96.641 Presence of right artificial hip joint

== ENCOUNTER → 2018-11-14 | Outpatient (CLI) | payer MEDICARE, OTHER ==
[~2018-11-14] MED LIST changes: +ELIQUIS5 MG PO
== END ==
LOC: M.ULTRA 13:00
DX: I73.9 Peripheral vascular disease, unspecified (principal)

== ENCOUNTER → 2019-05-08 | Outpatient (CLI) | payer MEDICARE, OTHER ==
--- NOTE | 2019-05-08 15:47 | 2DMMODE ---
[place] [address] 2 D/M-MODE ECHOCARDIOGRAM Name: ELOYGISSEL MARROQUIN Room: [facility]#: [id number] Admission: 05/08/19 Attend Phys: Salome Weldon RN Discharge: Date of : 34 Date of Service: 05/08/19 1546 Report #: [id number] THIS REPORT FOR: cc: Yamileth Rust. Yamileth Velazco. Wander Judge MD [facility] ~ APPROVED REPORT Study performed: 05/08/2019 10:23:27 EXAM: Comprehensive 2D, Doppler, and color-flow Echocardiogram Patient Location: Out-Patient BSA: 1.84 HR: 65 bpm BP: 142/60 mmHg Other Information Study Quality: Good Indications Atrial Fibrillation 2D Dimensions IVSd: 14.30 (7-11mm) LVOT Diam: 20.78 (18-24mm) LVDd: 39.46 mm PWd: 9.43 (7-11mm) Ascending Ao: 31.98 (22-36mm) LVDs: 25.73 (25-40mm) Aortic Root: 29.39 mm Volumes Left Atrial Volume (Systole) LA ESV Index: 20.70 mL/m2 Aortic Valve AoV Peak Raymond.: 1.69 m/s AO Peak Gr.: 11.38 mmHg LVOT Max P.43 mmHg AO Mean Gr.: 6.12 mmHg LVOT Mean P.13 mmHg LVOT Max V: 1.05 m/s AO V2 VTI: 39.21 cm LVOT Mean V: 0.67 m/s AMEENA (VTI): 2.35 cm2 LVOT V1 VTI: 27.15 cm AI Winston: 1.73 m/s2 AI PHT: 545.63 [place] [address] 2 D/M-MODE ECHOCARDIOGRAM Name: GISSEL LYONS Room: [facility]#: [id number] Admission: 05/08/19 Attend Phys: Salome Weldon RN Discharge: Date of : 32 Date of Service: 05/08/19 1546 Report #: [id number] Mitral Valve E/A Ratio: 1.63 MV Decel. Time: 190.62 ms MV E Max Raymond.: 0.71 m/s MV PHT: 55.28 ms MVA (PHT): 3.98 cm2 TDI E/Lateral E': 6.45 E/Medial E': 7.89 Medial E' Raymond.: 0.09 m/s Lateral E' Raymond.: 0.11 m/s Pulmonary Valve PV Peak Raymond.: 0.91 m/s PV Peak Gr.: 3.33 mmHg Tricuspid Valve RAP Estimate: 5.00 mmHg TR Peak Gr.: 36.78 mmHg RVSP: 41.78 mmHg PA Pressure: 41.78 mmHg Left Ventricle The left ventricle is normal size. There is normal LV segmental wall motion. Mild concentric left ventricular hypertrophy. Left ventricular systolic function is normal. The left ventricular ejection fraction is within the normal range. LVEF is 60%. The left ventricular diastolic function is normal. Right Ventricle The right ventricle is normal size. The right ventricular systolic function is normal. Atria Left atrium is borderline dilated. The right atrium size is normal. Aortic Valve Aortic valve is mildly calcified. Mild aortic regurgitation. There is no aortic valvular stenosis. Mitral Valve The mitral valve is normal in structure. Mild mitral regurgitation. No evidence of mitral valve stenosis. Tricuspid Valve The tricuspid valve is normal in structure. Mild to moderate tricuspid regurgitation. Moderate [place] [address] 2 D/M-MODE ECHOCARDIOGRAM Name: GISSEL LYONS Room: [facility]#: [id number] Admission: 05/08/19 Attend Phys: Salome Weldon RN Discharge: Date of : 32 Date of Service: 05/08/19 1546 Report #: [id number] Pulmonic Valve The pulmonary valve is normal in structure. Mild pulmonic regurgitation. Great Vessels The aortic root is normal in size. IVC is normal in size and collapses >50% with inspiration. Pericardium There is no pericardial effusion. <Conclusion> The left ventricle is normal size. Mild concentric left ventricular hypertrophy. Left ventricular systolic function is normal. The left ventricular ejection fraction is within the normal range. LVEF is 60%. The left ventricular diastolic function is normal. The right ventricle is normal size. Left atrium is borderline dilated. The right atrium size is normal. Aortic valve is mildly calcified. Mild aortic regurgitation. There is no aortic valvular stenosis. The mitral valve is normal in structure. Mild mitral regurgitation. The tricuspid valve is normal in structure. Mild to moderate tricuspid regurgitation. Moderate pulmonary hypertension. IVC is normal in size and collapses >50% with inspiration. There is no pericardial effusion. There is normal LV segmental wall motion. <ELECTRONICALLY SIGNED> By: Wandre Sinclair MD, FACC 05/08/19 1546 1546 1546 Wander Sinclair MD, FACC /INF
== END ==
LOC: M.CRD 10:31
DX: I08.8 Other rheumatic multiple valve diseases (principal)

== ENCOUNTER 2020-03-08 11:58 | Inpatient (IN) | payer MEDICARE, OTHER ==
[~2020-03-08] VITALS: Ht 162.6 cm; Wt 80.3 kg
--- NOTE | ~2020-03-08 | EMS ---
[facility] [address] [place] [address] EMS Patient Care Report Name: GISSEL LYONS Room: [address] IN [facility]#: [id number] Admission: 03/08/20 Attend Phys: Yomaira Mcdonald MD Discharge: Date of : 32 Report #: [id number] THIS REPORT FOR: //name// Report Transmitted: 03/15/2020 13:19 EMS Care Summary [facility] Incident [id number] @ 03/08/2020 11:05 Incident [address] [place] [address] Patient GISSEL LYONS Female, 89 Years 1930 Patient Address [address] [place] [address] Patient History Atrial Fibrillation,Hypotension, Patient Allergies No known allergies, Patient Medications Eliquis, Tylenol, Chief Complaint low oxygen saturation Disposition Transported No Lights/Berry Dispatch Reason Breathing Problem Transported To [facility] Narrative Med 1 and engine 1 were dispatched for low oxygen saturation. Units arrived and were met at the door by family whom stated that the patient had been diagnosed with brennenid Rossy altamirano. The daughter stated that the patient had been running a fever of 100 for the past couple days and her oxygen saturation [facility] [address] [place] [address] EMS Patient Care Report Name: GISSEL LYONS Room: [address] IN [facility]#: [id number] Admission: 03/08/20 Attend Phys: Yomaira Mcdonald MD Discharge: Date of : 32 Report #: [id number] on an at home spo2 device was in the 90's. The patient was alert and did not appear to be in distress. The patient was warm to the touch with a rapid radial pulse, lungs were clear in all rband, initial spo2 of 90% on room air. The patient stated that she had a HX of A-fib and HTN but the DRCaio took her off the medications in November. The patient stated that she had started to feel better but was now feeling worse. The patient was placed on 2 LPM NC. The patient was assisted to the cot, secured with cot straps and transferred to the ambulance. Once in the ambulance vitals were obtained, IV 20g established, A 12 lead was obtained and showed A-fib with RVR on the monitor. Vitals were monitored while en route. The patient rested comfortably on the cot. A radio report was given to [facility] The patient was transported and patient care was transferred to the receiving facility without incident. A verbal hospital report was given to the receiving facility RN. Chauhan 1 was back in service. Initial Vitals @11:31P: 139,SpO2: 95, @11:39 @11:55P: 146,R: 16,BP: 158/94,GCS: 15,Revised Trauma: 12, @11:54P: 158,R: 16,BP: 155/102,GCS: 15,SpO2: 96,Revised Trauma: 12, @11:49P: 145,R: 16,BP: 148/93,Pain: 0/10,GCS: 15,SpO2: 95,Revised Trauma: 12, @11:30P: 136,R: 16,BP: 152/89,Pain: 0/10,GCS: 15,Temp: 98.6F,Glucose: 130,SpO2: 96,Revised Trauma: 12,DC Suspected: false Assessments @11:20MENTAL:No Abnormalities,SKIN:Hot,HEENT:Head/Face: No Abnormalities,Eyes: No Abnormalities,Neck/Airway: No Abnormalities,LUNG SOUNDS:General: No Abnormalities,Left Upper: No Abnormalities,Right Upper: No Abnormalities,Left Lower: No Abnormalities,Right Lower: No Abnormalities,ABDOMEN:General: No Abnormalities,Left Upper: No Abnormalities,Right Upper: No Abnormalities,Left Lower: No Abnormalities,Right Lower: No Abnormalities,PELVIS//GI:No Abnormalities,EXTREMITIES:Left Arm: No Abnormalities,Right Arm: No Abnormalities,Left Leg: No Abnormalities,Right Leg: No Abnormalities,PULSE:NEURO:No Abnormalities, Impression Acute Respiratory Distress (Dyspnea) Procedures @11:32Saline Lock 10cc (20 ga) Site: Antecubital-LeftResponse: UnchangedSucceeded@11:16ALS AssessmentResponse: UnchangedSucceeded@11:18Oxygen FlowRate: 2 Device: Nasal Cannula (NC) Response: ImprovedSucceeded@11:3612-Lead ECGResponse: [place] [address] EMS Patient Care Report Name: GISSEL LYONS CARA Room: [address] IN [facility]#: [id number] Admission: 03/08/20 Attend Phys: Yomaira Mcdonald MD Discharge: Date of : 32 Report #: [id number] Timeline 11:03,Call Received 11:05,Dispatched 11:05,En Route 11:11,On Scene 11:15,At Patient 11:16,ALS Assessment,Response: UnchangedSucceeded, 11:18,Oxygen FlowRate: 2 Device: Nasal Cannula (NC) Response: ImprovedSucceeded, 11:30,BP: 152/89 M,PULSE: 136,RR: 16 R,SPO2: 96 Ox,ETCO2: ,B,PAIN: 0,GCS: 15, 11:31,BP: / M,PULSE: 139,RR: R,SPO2: 95 Ox,ETCO2: ,BG: ,PAIN: ,GCS: , 11:32,Depart Scene 11:32,Saline Lock 10cc 20 ga Site: Antecubital-Left,Response: UnchangedSucceeded, 11:36,12-Lead ECG,Response: UnchangedSucceeded, 11:39,BP: / M,PULSE: ,RR: R,SPO2: Ox,ETCO2: ,BG: ,PAIN: ,GCS: , 11:49,BP: 148/93 M,PULSE: 145,RR: 16 R,SPO2: 95 Ox,ETCO2: ,BG: ,PAIN: 0,GCS: 15, 11:54,BP: 155/102 M,PULSE: 158,RR: 16 R,SPO2: 96 Ox,ETCO2: ,BG: ,PAIN: ,GCS: 15, 11:55,BP: 158/94 M,PULSE: 146,RR: 16 R,SPO2: Ox,ETCO2: ,BG: ,PAIN: ,GCS: 15, 11:56,At Destination 12:01,Transfer Patient 12:37,Call Closed 12:37,In District Disclaimer v1.1 Copyright 2020 [employer] This EMS Care Summary contains data elements from the applicable legal record (which may be displayed differently). It is designed to provide pertinent information for the following purposes: continuity of care, clinical quality, and state data reporting. The complete legal record is available to ED staff and administrators of the receiving hospital in [facility]'s Patient Tracker. All data is provided "as is."
[2020-03-08 12:01] VITALS: BP 138/90
[2020-03-08 12:59] LABS: BE 3.7 mmol/L (-2 to +3); PCO2 28.8 mmHg (35.0-45.0); PO2 78.7 mmHg (75.0-100.0); pH 7.559 (7.340-7.450)
[2020-03-08 13:04] LABS: HEMATOCRIT 36.7 % (37.0-47.0); HEMOGLOBIN 12.6 gm/dL (12.0-15.0); MCH 32.4 pg (26.0-34.0); MCHC 34.3 g/dL (28.0-37.0); MCV 94.4 fL (80.0-100.0); NUCLEATED RBCS 0 /100WBC; PLATELET COUNT* 191 thou/uL (150-400); RBC 3.88 mil/uL (4.20-5.00); RDW-CV 13.1 % (10.5-14.5); WBC 5.2 thou/uL (4.0-11.0)
[2020-03-08 13:14] LABS: CALCIUM 8.4 mg/dL (8.5-10.1); CREATININE 0.8 mg/dL (0.6-1.3); POTASSIUM 3.3 mmol/L (3.5-5.1)
[2020-03-08 13:24] LABS: ALBUMIN 2.8 g/dL (3.4-5.0); MAGNESIUM 1.7 mg/dL (1.8-2.4); PHOSPHORUS* 2.4 mg/dL (2.5-4.9); TOTAL PROTEIN 6.3 g/dL (6.4-8.2)
[2020-03-08 13:26] LABS: ABSOLUTE LYMPHOCYTES 0.4 thou/uL (0.8-5.3); ABSOLUTE MONOCYTES 0.2 thou/uL (0.0-1.2); ABSOLUTE NEUTROPHILS 4.7 thou/uL (1.6-8.1); ANISOCYTOSIS 1+; PLATELET ESTIMATE ADEQUATE; POIKILOCYTOSIS 1+
[2020-03-08 15:07] LABS: URINE BILIRUBIN NEGATIVE (Negative); URINE BLOOD 1+ (Negative); URINE COLOR YELLOW; URINE GLUCOSE-RANDOM NEGATIVE (Negative); URINE KETONES 1+ (Negative); URINE LEUKOCYTES NEGATIVE (Negative); URINE NITRITE NEGATIVE (Negative); URINE PROTEIN 2+ (Negative); URINE UROBILINOGEN 0.2 E.U./dl (0.2-1.0)
[2020-03-08 15:08] LABS: URINE CLARITY HAZY
[2020-03-08 15:15] LABS: SQUAMOUS 0-3 Few /LPF (0-3)
[2020-03-08 15:16] LABS: BACTERIA None Seen /HPF (None Seen); CASTS None Seen /LPF (None Seen); CRYSTALS None Seen /LPF (None Seen); MUCUS 0-3 Light strn/LPF (None Seen); URINE RBC 0-2 Rare /HPF (0-2); URINE WBC None Seen /HPF (0-5)
--- NOTE | 2020-03-08 17:07 | EKG ---
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: : 1930 Requested By: Giovanny Segundo Order Number: [id number] MD: Rickey Caldera Measurements Intervals [place] Rate: 152 P: TX: QRS: 7 QRSD: 129 T: -25 QT: 302 QTc: 481 Interpretive Statements Atrial fibrillation with rapid ventricular respose Right bundle branch block Compared to ECG 01/20/2018 15:12:43 Sinus rhythm no longer present Electronically Signed On 03-08-2020 17:07:18 CLINICAL ENGINEER by Rickey Caldera [email or web address] <ELECTRONICALLY SIGNED> By: Rickey Caldera MD, FACC 03/08/20 1707 1214 1214 Rickey Caldera MD, FAC /EPI
[2020-03-08 18:48] VITALS: BP 104/48
[2020-03-08 19:50] VITALS: BP 113/52
[2020-03-09 00:18] VITALS: BP 106/53
[2020-03-09 05:02] VITALS: BP 118/65
--- NOTE | 2020-03-09 05:08 | NUR ---
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 SHE IS ABLE TO COMMUNICATE HER NEEDS TO STAFF EFFECTIVELY. CURRENT PAIN MEDICATION REGIMEN HAS BEEN ADEQUATE FOR CONTROLLING HER PAIN UP TO THIS TIME. SHE HAS BEEN NPO SINCE MIDNIGHT FOR A CARDIOLOGY CONSULT TODAY; CARDIZEM GTT OFF NOW (ER ORDER WAS FOR ONE BAG).
[2020-03-09 08:00] VITALS: BP 124/69
[2020-03-09 12:00] VITALS: BP 150/75
--- NOTE | 2020-03-09 13:58 | NUR ---
CM SPOKE TO THE PT VIA THE HOSPITAL ROOM PHONE TO DISCUSS CM ASSESSMENT THE PT IS COVID POSITITVE AND CURRENTLY UNDER ENHANCED PRECAUTIONS. PT A&O, BUT FORGETFUL. PT MESA GRANDE. CM SPOKE TO PT'S DTR TO COMPLETE ASSESSMENT. PT'S DTR INFORMS THAT SHE LIVES AT HOME WITH HER AND THE DTR'S SPOUSE. PT USES A WHEELCHAIR FOR MOBILITY. PT ALSO USES BEDSIDE COMMODE. PT REQUIRES ASSIST WITH TRANSFERS. PT HAS PAST HX OF HH. PT HAS 0 HX OF SNF. PT CURRENTLY ON 2L O2, BUT DID NOT USE HOME O2 PRIOR TO ADMIT. CM WILL REMAIN AVAILABLE TO ASSIST AND FOLLOW NEEDED.
[2020-03-09 15:30] LABS: CALCIUM 8.5 mg/dL (8.5-10.1); CREATININE 0.8 mg/dL (0.6-1.3); MAGNESIUM 1.7 mg/dL (1.8-2.4); POTASSIUM 3.5 mmol/L (3.5-5.1)
[2020-03-09 16:00] VITALS: BP 122/60
--- NOTE | 2020-03-09 18:42 | NUR ---
ASSUMED PT CARE AT APPROX 0730, PT AOX4 BUT FORGETFUL, NO C/O PAIN OR SHORTNESS OF BREATH. PT HEART RATE HIGH, 110'S-130'S UPON COMING ON SHIFT, DR WEIR AND CARDIOLOGY NOTIFIED AND ORDERS RECEIVED TO RESTART CARDIZEM DRIP, DRIP RESTARTED AND TITRATED BUT PT HEART RATE CONTINUED TO GO UP, HIGHEST BEING UP TO THE 160'S, DR WEIR NOTIFIED AGAIN AND ORDERS RECEIVED FOR SOTALOL, GIVEN TO PT AND HEART RATE NOW IN THE 80'S-90'S. PT BEING TURNED Q2H, MEDS PER APR, HOURLY ROUNDING OBSERVED, FALL PRECAUTIONS IN PLACE, CALL LIGHT W/IN REACH. PT GOAL IS TO KEEP HEART RATE WNL.
[2020-03-09 20:54] VITALS: BP 122/76
[2020-03-10] VITALS (8 sets, daily range): BP systolic 108–141; BP diastolic 58–85
[2020-03-10 04:55] LABS: HEMATOCRIT 33.3 % (37.0-47.0); HEMOGLOBIN 11.3 gm/dL (12.0-15.0); MCH 32.3 pg (26.0-34.0); MCHC 33.9 g/dL (28.0-37.0); MCV 95.1 fL (80.0-100.0); RBC 3.5 mil/uL (4.20-5.00); RDW-CV 13.5 % (10.5-14.5); WBC 6.3 thou/uL (4.0-11.0)
[2020-03-10 05:17] LABS: ALBUMIN 2.3 g/dL (3.4-5.0); CALCIUM 8.3 mg/dL (8.5-10.1); CREATININE 0.8 mg/dL (0.6-1.3); MAGNESIUM 1.9 mg/dL (1.8-2.4); POTASSIUM 3.5 mmol/L (3.5-5.1); TOTAL BILIRUBIN 0.9 mg/dL (<0.1-1.0); TOTAL PROTEIN 5.6 g/dL (6.4-8.2)
--- NOTE | 2020-03-10 08:06 | NUR ---
PT IS ABLE TO COMMUNICATE HER NEEDS TO STAFF EFFECTIVELY. CURRENT PAIN MEDICATION REGIMEN HAS BEEN ADEQUATE FOR CONTROLLING HER PAIN UP TO THIS TIME. PUREWICK IN PLACE AND TOLERATED WELL.
--- NOTE | 2020-03-10 19:11 | NUR ---
ASSESSMENT DOCUMENTED. MEDS GIVEN PER E-MAR. IV PATENT. CARDIZEM DRIP RESTARTED ORDERED. PT STARTED CHOKING ON BREAKFAST AND STATED THAT SHE DOES THAT SOMETIMES. DR NOTIFIED, ORDERS RECIEVED. FALL PRECAUTIONS IN PLACE. ISOLATION MAINTAINED.
[2020-03-11] VITALS: BP 105/43; BP 111/61
[2020-03-11 04:00] VITALS: BP 105/43
[2020-03-11 05:24] LABS: HEMATOCRIT 32.1 % (37.0-47.0); MCH 32.3 pg (26.0-34.0); MCHC 34.2 g/dL (28.0-37.0); MCV 94.5 fL (80.0-100.0); MPV 7.2 fl. (7.2-11.1); RBC 3.4 mil/uL (4.20-5.00); RDW-CV 13.3 % (10.5-14.5); WBC 6.4 thou/uL (4.0-11.0)
[2020-03-11 05:39] LABS: ALBUMIN 2.1 g/dL (3.4-5.0); CALCIUM 8.5 mg/dL (8.5-10.1); CREATININE 0.8 mg/dL (0.6-1.3); MAGNESIUM 1.8 mg/dL (1.8-2.4); POTASSIUM 3.5 mmol/L (3.5-5.1); TOTAL PROTEIN 5.4 g/dL (6.4-8.2)
[2020-03-11 09:20] VITALS: BP 116/60
--- NOTE | 2020-03-11 09:29 | CON ---
[address] [address] CONSULTATION Name: GISSEL LYONS Room: [address] IN [facility].#: [id number] Admission: 03/08/20 Attend Phys: Yomaira Mcdonald MD Discharge: Date of : 32 Report #: [id number] THIS REPORT FOR: cc: Yamileth Rust. Yamileth Velazco. ANDRESSA ~ Catrachito Rosado MD [facility] DATE OF SERVICE: 03/08/2020 CARDIOLOGY CONSULTATION HISTORY OF PRESENT ILLNESS: The patient is an 89-year-old single white female who I was asked to see in the Emergency Room today after she complained of shortness of breath The patient has a long history of paroxysmal atrial fibrillation. She has been on sotalol and anticoagulated in the past. She developed bradycardia and was switched from sotalol to flecainide. Recently, she wore a monitor showed atrial fibrillation with pauses up to 4 seconds. When I saw her in the office in November, she was in atrial fibrillation, controlled ventricular response rate. She was taken off of beta denise in the past because of pauses. She was taken off of flecainide. She was continued on Eliquis. The patient came to the Emergency Room today complaining of being short of breath. She has been coughing and had some chest discomfort. She does not pass heart rate and felt lightheaded. PAST MEDICAL HISTORY: She has had a previous cataract extraction, hip surgery, tonsillectomy, hypertension, hyperlipidemia. MEDICATIONS: Include clonidine, Eliquis, hydrochlorothiazide, simvastatin. ALLERGIES: She has no known drug allergies. FAMILY HISTORY: Her mother and father both had heart disease. SOCIAL HISTORY: She is , lives with a daughter in [place]. No smoking or alcohol abuse. REVIEW OF SYSTEMS: No history of stroke, asthma, liver disease, kidney disease, cancer, psychiatric illness, chronic skin condition. PHYSICAL EXAMINATION: GENERAL: Revealed an elderly female lying in bed. She appeared in no acute distress. VITAL SIGNS: Blood pressure 110/60, pulse is 150. [place] [id number] CONSULTATION Name: GISSEL LYONS Room: [address] IN [facility]#: [id number] Admission: 03/08/20 Attend Phys: Yomaira Mcodnald MD Discharge: Date of : 32 Report #: [id number] morning of 103. HEENT: She is anicteric. Conjunctivae pink. Mucous membranes moist. NECK: Veins are nondistended. CHEST: No crackles in both lung brand. CARDIOVASCULAR: Irregular, tachycardia. ABDOMEN: Soft. EXTREMITIES: Had no edema. DIAGNOSTIC DATA: ECG shows an atrial fibrillation with increased ventricular response rate, increased right bundle branch block. Echocardiogram in April showed ejection fraction of 60%. LABORATORY DATA: Lab work today, she had a portable chest x-ray showed that cardiomegaly, small effusion, hyperinflated lung brand. Her last echo was in 04/2019 that showed an ejection fraction of 60%, left ventricular hypertrophy, aortic sclerosis. LABORATORY DATA: Sodium 131, BUN 12, creatinine 0.8. Liver function studies were normal. BNP 3475. White blood cell count 5.2, hemoglobin 12.6. IMPRESSION AND RECOMMENDATIONS: 1. Recurrent atrial fibrillation. Rate increased. I would start IV Cardizem. I would continue chronic anticoagulation with Eliquis. 2. Hypertension. The patient is on a diuretic. 3. Hyperlipidemia. The patient is on a statin drug. 4. COVID-19 pneumonia. The patient tested positive. <ELECTRONICALLY SIGNED> By: Catrachito Rosado MD, FACC 03/11/20 0929 1638 1936Catrachito Rosado MD, FACC /nt
[2020-03-11 12:00] VITALS: BP 101/41
[2020-03-11 16:00] VITALS: BP 112/58
--- NOTE | 2020-03-11 16:00 | NUR ---
REAMINS ON 10L/O2 PER HFC. REMDESIVIR STARTED. PULM SAW AND ORDERED DOSE OF IV LASIX FOR TODAY. ON SOTALOL LOAD.
[2020-03-11 21:07] VITALS: BP 125/57
[2020-03-12] VITALS (7 sets, daily range): BP systolic 106–137; BP diastolic 46–64
--- NOTE | 2020-03-12 05:06 | NUR ---
PT ALERT BUT FORGETFUL, CAN ANSWER QUESTIONS. USING PUREWICK, Q2 TURN, CARDIZEM DRIP ON ALL SHIFT. SHE SLEPT ALL SHIFT. SKIN INTACT. CRUSH MEDS IN APPLESAUCE, NO APPARENT PAIN.
[2020-03-12 05:31] LABS: HEMATOCRIT 34.5 % (37.0-47.0); HEMOGLOBIN 11.6 gm/dL (12.0-15.0); MCH 31.5 pg (26.0-34.0); MCHC 33.6 g/dL (28.0-37.0); MCV 93.7 fL (80.0-100.0); MPV 7.3 fl. (7.2-11.1); RBC 3.68 mil/uL (4.20-5.00); WBC 7.2 thou/uL (4.0-11.0)
[2020-03-12 05:51] LABS: ALBUMIN 2.2 g/dL (3.4-5.0); CALCIUM 8.4 mg/dL (8.5-10.1); CREATININE 0.9 mg/dL (0.6-1.3); MAGNESIUM 2.1 mg/dL (1.8-2.4); POTASSIUM 3.2 mmol/L (3.5-5.1); TOTAL BILIRUBIN 0.8 mg/dL (<0.1-1.0); TOTAL PROTEIN 5.8 g/dL (6.4-8.2)
--- NOTE | 2020-03-12 13:09 | NUR ---
RIGHT BASILIC VESSEL ACCESSED FOR 5 TOGOLESE DUAL LUMEN PICC. LINE PRE-TRIMMED TO 38CM AND ADVANCED TO THE ZERO NERI WITH NO RESISTANCE MET. UPPER ARM CIRCUMFERENCE ABOVE INSERTION SITE= 13". SHERLOCK MAGNET SHOWS LINE TRAVELS DOWN, 3CG UNABLE TO CONFIRM DUE TO A-FIB. POST PROCEDURE CXR SHOWS LINE TRAVELS DOWN TO 2-3CM BELOW THE SYLVIA IN THE DISTAL SVC. GUIDE WIRE REMOVED, LINE FLUSHES AND INSERTION SITE DRESSED. REPORT GIVEN TO LEIDA YUEN.
--- NOTE | 2020-03-12 18:30 | NUR ---
SOTALOL LOAD CONTINUES. REAMINS ON HIGH O2 REQUIREMENTS OF 10 LITERS. IV REMDESIVIR AND IV DEXAMETHASONE. PT/OT TO BE ORDERED WHEN O2 REQUIREMENTS LESSEN .
--- NOTE | 2020-03-12 20:20 | NUR ---
PT IS RESTING AT THIS TIME.DAUGHTER CALLED TO REPORT PT SOUNDED "FUNNY". PT IS OX4.SOME CONFUSION NOTED BUT NOT ABNORMAL FOR PT. PT VSS ON 10 LNC.AFIB ON MONITOR. CARDIZEM GTT IN PLACE.PICC PLACED TODAY TO ACCOMMADATE IV INFUSION NEEDS.NO OTHER NEEDS AT THIS TIME.CLWR.WCTM
[2020-03-13] VITALS (8 sets, daily range): BP systolic 99–134; BP diastolic 56–70
[2020-03-13 06:17] LABS: HEMATOCRIT 32.7 % (37.0-47.0); HEMOGLOBIN 11.1 gm/dL (12.0-15.0); MCH 31.9 pg (26.0-34.0); MCHC 33.8 g/dL (28.0-37.0); MCV 94.5 fL (80.0-100.0); MPV 7.5 fl. (7.2-11.1); RBC 3.46 mil/uL (4.20-5.00); RDW-CV 13.2 % (10.5-14.5); WBC 7.8 thou/uL (4.0-11.0)
[2020-03-13 06:35] LABS: ALBUMIN 2.1 g/dL (3.4-5.0); CALCIUM 8.2 mg/dL (8.5-10.1); CREATININE 0.8 mg/dL (0.6-1.3); MAGNESIUM 1.8 mg/dL (1.8-2.4); TOTAL BILIRUBIN 0.8 mg/dL (<0.1-1.0); TOTAL PROTEIN 5.3 g/dL (6.4-8.2)
--- NOTE | 2020-03-13 07:46 | NUR ---
ASSUMED CARE OF PT AFTER REPORT AT 1930. PT A&OX4. VSS. PHYSICAL ASSESSMET COMPLETED AND CHARTED. PT ON O2 AT 10L HFNC. PT TRACING AFIB ON TELE-MAINTAINED ON CARDIZEM DRIP. PT DENIES ANY PAIN. PT ABLE TO SLEEP WELL ON BED. PT TRANSFERRED TO 116 FROM 104 VIA BED WITH BELONGINGS. CALL LIGHT WITHIN REACH.
--- NOTE | 2020-03-13 16:00 | NUR ---
ON 8L HFC THIS AFTERNOON, DOWN FROM 10L THIS AM. DUTY OFFICER SHOWS AFIB WITH CONTROLLED RATE THIS AFTERNOON. CM WILL CONT. TO FOLLOW
--- NOTE | 2020-03-13 18:45 | NUR ---
PT A&OX4 VSS. PT REMAINS ON CARDIZEM DRIP, 10MG/HOUR ORDERED. PT A FIB ON MONITOR. DBL LUMEN PICC TO ZABRINA PATENT, DRESSING C/D/I. PT REMAINS ON 10L HIGH FLOW 02. PT TOLERATED PO INTAKE W/O COMP[LAINTS. PT REQUESTED TO TAKE PO MEDS WHOLE, NO C/O DIFFICULTY SWALLOWING. PT RESTS IN BED WITH CALL LIGHT AND PHONE IN REACH. WILL CONTINUE TO MONITOR
[2020-03-14 04:00] VITALS: BP 110/55
--- NOTE | 2020-03-14 05:26 | NUR ---
ASSUMED CARE OF PT AFTER REPORT AT 1930. PT A&OX4. VSS. PHYSICAL ASSESSMENT COMPLETED AND CHARTED. PT ON 8L HFNC. PT TRACING AFIB PVC ON TELE. PT TURNED TO SIDES. PT WITH EPISODES OF INCONTINENT BLADDER. PT ABLE TO SLEEP WELL ON BED. CALL LIGHT WITHIN REACH.
[2020-03-14 10:30] VITALS: BP 111/58
[2020-03-14 12:12] VITALS: BP 131/59
[2020-03-14 17:11] VITALS: BP 121/59
[2020-03-14 20:00] VITALS: BP 130/62
--- NOTE | 2020-03-14 20:39 | NUR ---
PATIENT IS A&OX4 AND PLEASANT. AFIB RVR CONTINUES ON 8L HIGH FLOW WITH O2 SATS IN LOW 90'S. SAFETY MEASURES IN PLACE. PATIENT ATE 75% MEALS ON MECHANICAL ALTERED DIET. MEDICATIONS ADMINISTERED ORDERED. DENIES ANY PAIN. ASSISTED WITH REPOSITIONING NEEDED TO PROMOTE COMFORT.
[2020-03-15] VITALS: BP 147/63
[2020-03-15 04:00] VITALS: BP 132/64
--- NOTE | 2020-03-15 05:02 | NUR ---
ASSUMED CARE OF PT AFTER REPORT AT 1930. PT A&OX4. VSS. PHYSICAL ASSESSMENT COMPLETED AND CHARTED. PT ON HFNC 8L. PT TRACING AFIB ON TELE. PT DENIES ANY PAIN. PT ABLE TO SLEEP WELL ON BED. FALL PRECAUTIONS INPLACE. CALL LIGHT WITHIN REACH.
[2020-03-15 09:37] LABS: CALCIUM 8.4 mg/dL (8.5-10.1); CREATININE 0.7 mg/dL (0.6-1.3); POTASSIUM 3.2 mmol/L (3.5-5.1)
[2020-03-15 11:57] VITALS: BP 137/72
--- NOTE | 2020-03-15 14:00 | NUR ---
PT.ON 8LO/NC TODAY. NEEDS ENCOURAGED TO SIT UP IN CHAIR MORE. PER NOTE-DC SOTALOL, CONTNUE ELIQUIS AND DILTAZEM PO. A FIB WITH CONTROLLED RATE ON MONITOR.
[2020-03-15 15:54] VITALS: BP 112/70
--- NOTE | 2020-03-15 19:41 | NUR ---
PATIENT ALERT AND ORIENTEDX4. PLEASANT AND RESPONDWS READILY. PATIENT SPEAKS OF GOING HOME TO BE WITH HER FAMILY WHOM SHE LIVES WITH.MEDICATIONS ADMINISTERED ORDERED. ASSESSMENT COMPLETED AND SAFETY MEASURES CONTINUE TO BE EFFECTIVE. PUREWICK IS IN PLACE AND PATIENT IS VOIDING DARK YELLOW URINE. MOISTURE BARRIER APPLIED NEEDED TO PROMOTE HEALING TO BUTTOCKS. CONTINUES ON HIGH FLOW O2 PER NC AT 10 L. CONTINUE CURRENT PLAN OF CARE/
[2020-03-15 20:00] VITALS: BP 125/68
[2020-03-16] VITALS: BP 134/56
[2020-03-16 04:00] VITALS: BP 133/60
[2020-03-16 05:50] LABS: MAGNESIUM 1.8 mg/dL (1.8-2.4); POTASSIUM 3.1 mmol/L (3.5-5.1)
[2020-03-16 10:14] VITALS: BP 133/71
[2020-03-16 13:00] VITALS: BP 123/72
--- NOTE | 2020-03-16 16:48 | NUR ---
PT REMAINED ALERT AND ORIENTED. PT RESTING IN BED. SKIN TEARS NOTED TO BOTTOM. BARRIER CREAM APPLIED. Q2 TURNS COMPLETED. PT O2 TITRATED DOWN PER RESPIRATORY. FAMILY NOTIFIED. HOURLY ROUNDING COMPLETED. ISOLATION MAINTAINED.
[2020-03-16 17:50] VITALS: BP 136/72
[2020-03-16 20:00] VITALS: BP 125/69
[2020-03-17] VITALS: BP 110/64
[2020-03-17 04:00] VITALS: BP 115/57
[2020-03-17] MEDS ORDERED: DILTIAZEM 24HR120 M1 PO (09:14)
[2020-03-17 10:47] VITALS: BP 118/56
[2020-03-17 12:32] VITALS: BP 139/73
[2020-03-17 16:32] VITALS: BP 115/76
--- NOTE | 2020-03-17 17:31 | NUR ---
pt remained alert and oriented. attempted to get pt up but no chair alarms present, datawarehouse developer aware. q2 turns completed. purewick in place. pics taken of coccyx. pt denies any needs. fall risk precautions in place. hourly rounding completed. isolation maintained.
[2020-03-17 21:00] VITALS: BP 118/62
[2020-03-18] VITALS: BP 109/59
[2020-03-18 04:00] VITALS: BP 114/61
--- NOTE | 2020-03-18 07:25 | NUR ---
Alert and oriented x 4. Vitals stable. O2 8L high flow canula. She has a purewick to suction. She has been repositioned as she has wanted. She's able to move in bed. She has slept well.
[2020-03-18 08:00] VITALS: BP 128/47
[2020-03-18 12:53] VITALS: BP 95/65
--- NOTE | 2020-03-18 15:00 | NUR ---
SPOKE WITH PTS DAUGHTER, NACHO, ON [phone]. DISCUSSED THAT PT.MAY BE ABLE TO DISCHARGE IN A DAY OR TWO. TOLD HER THERAPY SAID SHE NEEDED MIN A.TO TRANSFER TO . NACHO SAID SHE IS HOME 21/09 WITH HER AND SHE CAN HELP HER TRANSFER. SHE WOULD BE INTERESTED IN HOME HEALTH. SHE DID NOT HAVE ANY PREFERENCE OF AGENCY, JUST AVI ALMEIDA. ALSO INFORMED HER SHE MAY HAVE TO BE ON O2 SHORT TERM WHEN SHE COMES HOME.
[2020-03-18 16:00] VITALS: BP 127/54
[2020-03-18 20:08] VITALS: BP 126/60
--- NOTE | 2020-03-18 21:03 | NUR ---
Pt remained A&O x4 for entire shift. Vital signs stable. Pt pleasant with staff. PT got pt up to chair after lunch. Pt tolerated well. Pt's O2 was titrated down to 4L by end of shift. Pt denies any pain. Pt eating well. Bed in low position, call light within reach.
[2020-03-19] VITALS: BP 113/50
[2020-03-19 04:00] VITALS: BP 129/59
[2020-03-19 06:25] LABS: HEMATOCRIT 35.1 % (37.0-47.0); HEMOGLOBIN 11.9 gm/dL (12.0-15.0); MCH 31.9 pg (26.0-34.0); MCHC 33.8 g/dL (28.0-37.0); MCV 94.3 fL (80.0-100.0); MPV 7.2 fl. (7.2-11.1); NUCLEATED RBCS 0 /100WBC; PLATELET COUNT* 318 thou/uL (150-400); RBC 3.73 mil/uL (4.20-5.00); RDW-CV 13.3 % (10.5-14.5); WBC 10.4 thou/uL (4.0-11.0)
--- NOTE | 2020-03-19 06:28 | NUR ---
PATIENT SLEPT MOST OF THE NIGHT. IV ANTIBIOTICS WERE GIVEN ORDERED. PATIENT REMAINS ON OXYGEN AT 3.5 L. WILL CONTINUE TO MONITOR.
[2020-03-19 06:39] LABS: CALCIUM 8.4 mg/dL (8.5-10.1); CREATININE 0.8 mg/dL (0.6-1.3); POTASSIUM 3.7 mmol/L (3.5-5.1)
[2020-03-19 07:09] LABS: ABSOLUTE LYMPHOCYTES 0.7 thou/uL (0.8-5.3); ABSOLUTE MONOCYTES 0.5 thou/uL (0.0-1.2); ABSOLUTE NEUTROPHILS 9.2 thou/uL (1.6-8.1); PLATELET ESTIMATE ADEQUATE
[2020-03-19 08:21] VITALS: BP 139/70
[2020-03-19 12:00] VITALS: BP 124/68
--- NOTE | 2020-03-19 16:49 | NUR ---
POSSIBLE DISCHARGE TOMORROW TO HOME WITH DAUGHTER WITH O2 AND HOME HEALTH. REFERRAL FAXED TO [facility] [phone]. WILL ARRANGE O2 THROUGH [facility] PENDING NEED.
--- NOTE | 2020-03-19 18:50 | NUR ---
PT CONFUSED AT TIMES VERY NOME ON 3L NC BUT WHEN THERAPY WORKED WITH PT WENT INTO THE 160S, HIGHEST WAS 174BPM TOLD THERAPY TO JUST LAY HER BACK DOWN BECAUSE SHE WASN'T TOLERATING IT WELL BEING AFIB WELL FAIR APPETITE INCONTINENT BUT PURE WICK ATTACHED CALL LIGHT IN REACH
[2020-03-19 21:55] VITALS: BP 122/46
[2020-03-20] VITALS: BP 116/66
[2020-03-20 04:00] VITALS: BP 126/39; BP 126/65
[2020-03-20 05:36] LABS: ABSOLUTE BASOPHILS 0.1 thou/uL (0.0-0.2); ABSOLUTE LYMPHOCYTES 0.3 thou/uL (0.8-5.3); ABSOLUTE MONOCYTES 0.9 thou/uL (0.0-1.2); BASOPHILS 0.9 %; HEMOGLOBIN 12.5 gm/dL (12.0-15.0); LYMPHOCYTES 3.3 %; MCH 31.8 pg (26.0-34.0); MCHC 33.7 g/dL (28.0-37.0); MCV 94.4 fL (80.0-100.0); MONOCYTES 8.9 %; MPV 7.5 fl. (7.2-11.1); NUCLEATED RBCS 0 /100WBC; PLATELET COUNT* 276 thou/uL (150-400); POLYS 86.9 %; RBC 3.92 mil/uL (4.20-5.00); RDW-CV 13.3 % (10.5-14.5); WBC 10.3 thou/uL (4.0-11.0)
[2020-03-20 05:46] LABS: CALCIUM 8.1 mg/dL (8.5-10.1); CREATININE 0.7 mg/dL (0.6-1.3); POTASSIUM 3.6 mmol/L (3.5-5.1)
--- NOTE | 2020-03-20 06:24 | NUR ---
PATIENT SLEPT MOST OF THE NIGHT. PICC LINE REMAINS IN PLACE. IV ANTIBIOTICS WERE GIVEN ORDERED. PUREWICK REMAINS IN PLACE. PATIENT REMAINS ON OXYGEN AT 3L. WILL CONTINUE TO MONITOR.
[2020-03-20 08:00] VITALS: BP 127/60
[2020-03-20] MEDS ORDERED: DOXYCYCLINE 10100 MG PO (09:28)
[2020-03-20] MEDS ORDERED: PROTONIX40 M4 PO (09:28)
[2020-03-20] MEDS ORDERED: DEXAMETHASONE1 MG PO (09:28)
[2020-03-20 11:33] VITALS: BP 127/60
--- NOTE | 2020-03-20 12:00 | NUR ---
SPOKE WITH DAUGHTER,NACHO, ON PHONE. TOLD HER PT.IS BEING DISCHARGED TODAY. SHE DOES NOT NEED O2. SHE WAS PLEASED WITH THAT. SHE CHOSE [facility] FOR HH. SHE WILL BRING SOME CLOTHES UP TO THE CRATING AND MOVING ESTIMATOR OF HOSPITAL AFTER 1:00 FOR PT.TO WEAR HOME AND THEN TRANSPORT PT.IN PRIVATE CAR. FAXED REFERRAL AND DISCHARGE ORDERS TO [facility] [phone] AND SPOKE WITH MICAELA IN INTAKE. NOTIFIED WILFRID MILLER.
[2020-03-20 12:05] VITALS: BP 131/62
[2020-03-20 12:37] VITALS: BP 127/60
--- NOTE | 2020-03-20 14:19 | NUR ---
PT DISCHARGED HOME WITH DTR. PT IS VERY WEAK TOOK 2 PERSON MAX ASSIST TO TRANSFER PT DTR STATED SHE HAD HELP AT HOME. HOME HEALTH TO COME ALSO . PAPERWORK GONE OVER WITH DTR NO QUESTIONS AT THIS TIME TOLD HER TO CALL IF SHE NEEDED ANYTHING PICC LINE REMOVED
== END 2020-03-20 14:20 | disposition home health service (06) | DRG 871 ==
LOC: M.ERS 11:58 → M.ORTHSURG 14:01 → M.TBA-ER 14:01 → M.ORTHSURG 19:30
PROVIDERS: Emergency Medicine; Family Medicine; Internal Medicine; ADMIT Family Medicine; ATTEND Family Medicine
DX: A41.89 Other specified sepsis (principal); U07.1 COVID-19; J96.01 Acute respiratory failure with hypoxia; J12.82 Pneumonia due to coronavirus disease 2019; I50.33 Acute on chronic diastolic (congestive) heart failure; J69.0 Pneumonitis due to inhalation of food and vomit; I48.20 Chronic atrial fibrillation, unspecified; E87.1 Hypo-osmolality and hyponatremia; I11.0 Hypertensive heart disease with heart failure; I48.0 Paroxysmal atrial fibrillation; E78.5 Hyperlipidemia, unspecified; M19.90 Unspecified osteoarthritis, unspecified site; E87.6 Hypokalemia; F44.4 Conversion disorder with motor symptom or deficit; Z96.641 Presence of right artificial hip joint; Z79.899 Other long term (current) drug therapy; Z79.01 Long term (current) use of anticoagulants

== ENCOUNTER 2020-04-03 10:30 | Emergency (ER) | payer MEDICARE, OTHER ==
[~2020-04-03] VITALS: Ht 160 cm; Wt 79.4 kg
[~2020-04-03 10:30] MED LIST changes: +DEXAMETHASONE1 MG PO; +DILTIAZEM 24HR120 M1 PO; +DOXYCYCLINE 10100 MG PO; +PROTONIX40 M4 PO
[2020-04-03] MEDS ORDERED: ELIQUIS5 M1 PO (10:44)
[2020-04-03] MEDS ORDERED: MECLIZINE HCL25 M1 PO (10:44)
[2020-04-03] MEDS ORDERED: BACLOFEN 10MG T10 MG PO (10:45)
[2020-04-03] MEDS ORDERED: DILTIAZEM ER120 MG PO (10:45)
[2020-04-03] MEDS ORDERED: OMEPRAZOLE 20 M20 M1 PO (10:46)
[2020-04-03] MEDS ORDERED: LIPITOR 20 MG T20 M1 PO (10:46)
[2020-04-03] MEDS ORDERED: CENTANY AT1 EACH (10:46)
[2020-04-03] MEDS ORDERED: TRIAMCINOLONE A15 G1 TP (11:04)
[2020-04-03] MEDS ORDERED: BACTRIM DS TAB1 EACH PO (11:04)
[2020-04-03] MEDS ORDERED: NYSTATIN100000 UNI SW&SWALLOW (11:05)
[2020-04-03] MEDS ORDERED: DIFLUCAN150 MG PO (11:17)
[2020-04-03 11:29] VITALS: BP 101/55
== END 2020-04-03 11:29 | disposition home or self-care (01) ==
LOC: M.ERS 10:30
DX: L01.00 Impetigo, unspecified (principal); B37.9 Candidiasis, unspecified; I48.91 Unspecified atrial fibrillation; I11.0 Hypertensive heart disease with heart failure; I50.9 Heart failure, unspecified; Z96.641 Presence of right artificial hip joint; M47.9 Spondylosis, unspecified

== ENCOUNTER → 2020-05-17 | Outpatient (CLI) | payer MEDICARE, OTHER ==
[~2020-05-17] MED LIST changes: +BACTRIM DS TAB1 EACH PO; +CENTANY AT1 EACH; +DIFLUCAN150 MG PO; +DILTIAZEM ER120 MG PO; +ELIQUIS5 M1 PO; +LIPITOR 20 MG T20 M1 PO; +MECLIZINE HCL25 M1 PO; +NYSTATIN100000 UNI SW&SWALLOW; +TRIAMCINOLONE A15 G1 TP
== END ==
LOC: M.LAB 15:01
PROVIDERS: ATTEND Internal Medicine Cardiovascular Disease
DX: I48.91 Unspecified atrial fibrillation (principal); I10 Essential (primary) hypertension; R11.0 Nausea

== ENCOUNTER → 2020-05-27 | Outpatient (CLI) | payer MEDICARE, OTHER ==
--- NOTE | 2020-05-27 15:16 | 2DMMODE ---
[place] [address] 2 D/M-MODE ECHOCARDIOGRAM Name: BRAXTON LYONSZeferino MCINTYREAN Room: [facility]#: [id number] Admission: 05/27/20 Attend Phys: Salome Weldon RN Discharge: Date of : 34 Date of Service: 05/27/20 1516 Report #: [id number] THIS REPORT FOR: cc: Yamileth Rust. Yamileth Velazco. Catrachito Valle MD [facility] ~ APPROVED REPORT Study performed: 05/27/2020 12:53:39 EXAM: Comprehensive 2D, Doppler, and color-flow Echocardiogram Patient Location: Out-Patient BSA: 1.76 HR: 101 bpm BP: 132/88 mmHg Other Information Study Quality: Good Indications Congestive Heart Failure Atrial Fibrillation 2D Dimensions IVSd: 9.88 (7-11mm) LVOT Diam: 20.53 (18-24mm) LVDd: 37.00 mm PWd: 9.12 (7-11mm) Ascending Ao: 30.73 (22-36mm) LVDs: 23.10 (25-40mm) Aortic Root: 27.27 mm Volumes Left Atrial Volume (Systole) LA ESV Index: 24.40 mL/m2 Aortic Valve AoV Peak Raymond.: 1.88 m/s AO Peak Gr.: 14.17 mmHg LVOT Max P.34 mmHg AO Mean Gr.: 7.76 mmHg LVOT Mean P.67 mmHg LVOT Max V: 0.91 m/s AO V2 VTI: 25.78 cm LVOT Mean V: 0.59 m/s AMEENA (VTI): 1.94 cm2 LVOT V1 VTI: 15.12 [place] [address] 2 D/M-MODE ECHOCARDIOGRAM Name: GISSEL LYONS Room: [facility]#: [id number] Admission: 05/27/20 Attend Phys: Salome Weldon RN Discharge: Date of : 34 Date of Service: 05/27/20 1516 Report #: [id number] MV Decel. Time: 157.47 ms MV E Max Raymond.: 0.72 m/s MV PHT: 45.67 ms MVA (PHT): 4.82 cm2 TDI E/Lateral E': 5.54 E/Medial E': 6.55 Medial E' Raymond.: 0.11 m/s Lateral E' Raymond.: 0.13 m/s Pulmonary Valve PV Peak Raymond.: 1.10 m/s PV Peak Gr.: 4.81 mmHg Tricuspid Valve RAP Estimate: 5.00 mmHg TR Peak Gr.: 31.75 mmHg RVSP: 36.75 mmHg PA Pressure: 36.75 mmHg Left Ventricle The left ventricle is normal size. There is normal LV segmental wall motion. There is normal left ventricular wall thickness. Left ventricular systolic function is normal. The left ventricular ejection fraction is within the normal range. LVEF is 60-65%. This study is not technically sufficient to allow evaluation of the LV diastolic function due to atrial fibrillation. Right Ventricle The right ventricle is normal size. The right ventricular systolic function is normal. Atria The left atrium size is normal. The right atrium size is normal. Aortic Valve The Aortic valve is sclerotic. Mild aortic regurgitation. There is no aortic valvular stenosis. Mitral Valve The mitral valve is normal in structure. Trace mitral regurgitation. No evidence of mitral valve stenosis. Tricuspid Valve The tricuspid valve is normal in structure. Mild tricuspid regurgitation. estimated pa pressure 40 [place] [address] 2 D/M-MODE ECHOCARDIOGRAM Name: GISSEL LYONS Room: [facility]#: [id number] Admission: 05/27/20 Attend Phys: Salome Weldon RN Discharge: Date of : 32 Date of Service: 05/27/20 1516 Report #: [id number] Pulmonic Valve The pulmonary valve is normal in structure. There is no pulmonic valvular regurgitation. Great Vessels The aortic root is normal in size. IVC is normal in size and collapses >50% with inspiration. Pericardium There is no pericardial effusion. <Conclusion> LVEF is 60-65%. The Aortic valve is sclerotic. Mild aortic regurgitation. Mild tricuspid regurgitation. estimated pa pressure 40 mm Hg <ELECTRONICALLY SIGNED> By: Catrachito Rosado MD, FACC 05/27/20 1516 1516 151 Catrachito Rosado MD, FACC /INF
== END ==
LOC: M.CRD 12:54
PROVIDERS: ATTEND Registered Nurse
DX: I08.2 Rheumatic disorders of both aortic and tricuspid valves (principal); I50.33 Acute on chronic diastolic (congestive) heart failure; I48.91 Unspecified atrial fibrillation

== ENCOUNTER 2020-06-05 08:42 | Inpatient (IN) | payer MEDICARE, OTHER ==
[~2020-06-05] VITALS: Ht 160 cm; Wt 70.8 kg
[2020-06-05 09:25] VITALS: BP 115/67
--- NOTE | 2020-06-05 09:33 | EKG ---
[place] [address] ELECTROCARDIOGRAM REPORT Name: LYONSGISSEL Room: [address] ADM IN M.R.#: [id number] Admission: 06/05/20 Attend Phys: Jose Jones Discharge: Date of : 34 Date of Service: 06/05/20919 Report #: [id number] THIS REPORT FOR: //name// 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 <ELECTRONICALLY SIGNED> By: Leta Steward MD, [facility] 06/05/20932 9 9 Leta Steward MD, [facility] /EPI
[2020-06-05] MEDS ORDERED: DIGOX125 MCG PO (10:48)
[2020-06-05 11:15] LABS: ABSOLUTE BASOPHILS 0.1 thou/uL (0.0-0.2); ABSOLUTE EOSINOPHILS 0.1 thou/uL (0.0-0.7); ABSOLUTE MONOCYTES 0.8 thou/uL (0.0-1.2); ABSOLUTE NEUTROPHILS 7.4 thou/uL (1.6-8.1); BASOPHILS 0.6 %; EOSINOPHILS 1.2 %; HEMOGLOBIN 9.8 gm/dL (12.0-15.0); LYMPHOCYTES 10.2 %; MCH 34.2 pg (26.0-34.0); MCHC 33.9 g/dL (28.0-37.0); MONOCYTES 8.4 %; MPV 6.4 fl. (7.2-11.1); NUCLEATED RBCS 0 /100WBC; PLATELET COUNT* 385 thou/uL (150-400); POLYS 79.6 %; RBC 2.87 mil/uL (4.20-5.00); RDW-CV 16.9 % (10.5-14.5); WBC 9.3 thou/uL (4.0-11.0)
[2020-06-05] MEDS ORDERED: KLOR-CON M2020 MEQ PO (11:22)
[2020-06-05] MEDS ORDERED: TORSEMIDE20 MG PO (11:22)
[2020-06-05 11:25] LABS: CALCIUM 8.8 mg/dL (8.5-10.1); CREATININE 0.8 mg/dL (0.6-1.3); POTASSIUM 3.2 mmol/L (3.5-5.1)
[2020-06-05 11:31] LABS: APTT 25.7 Seconds (25.0-31.3); INR 1.1
[2020-06-05 11:40] VITALS: BP 104/44
[2020-06-05 13:09] VITALS: BP 123/41
[2020-06-05 15:47] VITALS: BP 123/41
[2020-06-05 20:00] VITALS: BP 112/40
[2020-06-06] VITALS (10 sets, daily range): BP systolic 100–130; BP diastolic 28–75
[2020-06-06] MEDS ORDERED: XANAX 0.25 MG0.25 MG PO (07:44)
[2020-06-06] MEDS ORDERED: FLONASE 0.05%50 MCG NASAL (07:46)
[2020-06-06] MEDS ORDERED: XARELTO20 MG PO (07:46)
--- NOTE | 2020-06-06 12:05 | CARD ---
[address] [address] CARDIAC CATH REPORT Name: GISSEL LYONS Room: [address] IN [facility]#: [id number] Admission: 06/05/20 Attend Phys: Rickey Caldera MD Discharge: Date of : 32 Report #: [id number] THIS REPORT FOR: cc: Yamileth Rust. Yamileth Velazco. Rickey Gonzalez MD [facility] ~ APPROVED REPORT Study performed: 06/06/2020 08:46:07 Event Personnel: Rickey Caldera Automation And Control Engineer, Missy Rojo RN RN, Blaine Villarreal, Kae Cerrato RTR Monitor Exam: Insertion of Dual Chamber Permanent Pacemaker Indications: Arrythmia The patient is a 89 year-old female with a history of . Conscious Sedation Start time: 09:34 End Time: 10:10 Fentanyl 25 mcg Versed 1.5 mg Implanted Devices: Medtronic ventricular lead. Model: 5076-52 cm. Serial: [id number]. Medtronic atrial lead. Model: 5076-45 cm. Serial: [id number]. Medtronic pacemaker. Model: Nguyen ALEXANDER [facility] W3DR01. Serial: [id number]. Procedure The patient underwent informed consent. We discussed the details of the procedure including the risks, which include, but not limited to bleeding, infection, vascular damage, cardiac perforation, and pneumothorax. She understood these risks and was willing to proceed. As such, she was brought to the EP/Cardiac Catheterization laboratory in a fasting and sedated state and prepped and draped in a sterile fashion, received IV antibiotics prior to initiation of the procedure and a venogram was performed showing patency of the left axillary vein. The patient underwent conscious sedation, with no related complications. The patient was brought to the EP/Cardiac Catheterization laboratory and the left chest and shoulder were prepped and draped in a sterile manner. During this case, Fluoroscopy and no [place] [address] CARDIAC CATH REPORT Name: GISSEL LYONS Room: [address] IN [facility].#: [id number] Admission: 06/05/20 Attend Phys: Rickey Caldera MD Discharge: Date of : 32 Report #: [id number] imaging. IV conscious sedation was used throughout procedure with appropriate monitoring and was performed in the presence of a registered nurse who was an independent trained observer other than the physician performing the procedure. The left subclavian region was infiltrated with 2% Lidocaine with Epinephrine subcutaneous anesthesia. A transverse incision was made in the left upper chest cavity. The subcutaneous pocket was formed via blunt dissection. Percutaneous venous access was achieved and an introducer sheath was inserted into the left Subclavian vein. Through the introducer sheaths the atrial and ventricular lead wires were positioned in the right atrial appendage and right ventricular apex respectively. Utilizing fluoroscopic guidance, the atrial and ventricular lead wires were advanced over the wires and positioned in the right atria and right ventricle respectively. Capturing and sensing thresholds were verified. Electrode Parameters P Wave: 2 5 R Wave: 1.5 Atrial Threshold: 3 7 5 V at 0.40 ms Ventricular Threshold: 4 V at 0.40 ms Atrial Resistance: 418 ohms Ventricular Resistance: 169 ohms Dual Chamber The atrial and ventricular leads were then secured using 0 silk sutures. The subcutaneous pocket was irrigated with Ancef 1 gram antibiotic solution.The atrial and ventricular leads were attached to the appropriate receptacles on the pulse generator and set screws firmly tightened to insure adequate contact and stability. The lead and pulse generator were placed into the subcutaneous pocket. Sharp and sponge counts were confirmed to be correct. At this time the pocket was closed subcutaneously with a 2.0 Vicryl and the skin was closed with a 2.0 Vicryl. The operative site was dressed in sterile fashion with benzoin spray,steria strips, telfa, tegaderm and the patient was transferred to the floor in stable condition. Complications The patient tolerated the procedure well and there were no complications associated [place] [address] CARDIAC CATH REPORT Name: GISSEL LYONS Room: [address] IN ..#: [id number] Admission: 06/05/20 Attend Phys: Rickey Caldera MD Discharge: Date of : 32 Report #: [id number] Findings Specimens Removed: No Estimated Blood Loss: < 5 ml Patient was noted to be in atrial fibrillation during procedure and had a single biphasic shock at 300 J converted to sinus rhythm facilitate placement of the atrial lead. Conclusion 1. Sinus syndrome with paroxysmal atrial fibrillation. 2. Successful placement of a dual-chamber pacemaker with atrial and ventricular lead placement. 3. DC cardioversion to normal sinus rhythm. Recommendations 1. Follow-up site check in 1 week. 2. Follow-up device interrogation in 1 to 2 months. <ELECTRONICALLY SIGNED> By: Rickey Caldera MD, FACC 06/06/20 1204 03 1204Mickay Caldera MD, FACC /INF
--- NOTE | 2020-06-06 13:52 | EKG ---
[place] [address] ELECTROCARDIOGRAM REPORT Name: BRAXTON LYONSA CARA Room: [address] ADM IN M.R.#: [id number] Admission: 06/05/20 Attend Phys: Rickey Caldera, Discharge: Date of : 34 Date of Service: 06/06/2022 Report #: [id number] THIS REPORT FOR: //name// [facility] Test Date: 2020-06-06 Test Time: 08:22:06 Pat Name: GISSEL LYONS Department: Room: [address] Gender: F Rn School: : 1930 Requested By: Jose Jones Order Number: [id number] Reading MD: Catrachito Rosado Measurements Intervals [place] Rate: 54 P: MA: QRS: 25 QRSD: 109 T: -14 QT: 407 QTc: 386 Interpretive Statements Atrial fibrillation RSR' in V1 or V2, right VCD or RVH ST depression V1-V3, suggest recording posterior leads Compared to ECG 06/05/2020 09:20:48 pvc's no longer seen Electronically Signed On 06-06-2020 13:52:00 CDT by Catrachito Rosado [email or web address] <ELECTRONICALLY SIGNED> By: Catrachito Rosado MD, FAC 06/06/20 1352 1 1 Catrachito Rosado MD, [facility] /EPI
[2020-06-07 00:01] VITALS: BP 117/78
[2020-06-07 04:00] VITALS: BP 124/55
[2020-06-07] MEDS ORDERED: SORINE 80 MG TA80 M1 PO (08:20)
[2020-06-07 09:22] VITALS: BP 139/59
--- NOTE | 2020-06-07 09:54 | EKG ---
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 : 1930 Requested By: Jose Jones Order Number: [id number] Bladimir MD: Catrachito Rosado Measurements Intervals [place] Rate: 78 P: HI: QRS: 30 QRSD: 99 T: -59 QT: 372 QTc: 424 Interpretive Statements Afib/flut and V-paced complexes No further rhythm analysis attempted due to paced rhythm RSR' in V1 or V2, right VCD or RVH Compared to ECG 06/06/2020 08:22:06 ventricular paced beats now seen Electronically Signed On 06-07-2020 9:54:24 CDT by Catrachito Rosado [email or web address] <ELECTRONICALLY SIGNED> By: Catrachito Rosado MD, [facility] 06/07/20 0954 0754 0754 Catrachito Rosado MD, [facility] /EPI
--- NOTE | 2020-06-07 09:55 | EKG ---
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 Manager: : 1930 Requested By: Rickey Caldera Order Number: [id number] Reading MD: Catrachito Rosado Measurements Intervals [place] Rate: 85 P: 0 DC: 192 QRS: -70 QRSD: 143 T: 86 QT: 375 QTc: 446 Interpretive Statements Atrial-ventricular dual-paced complexes No further analysis attempted due to paced rhythm Compared to ECG 06/07/2020 07:54:28 Atrial fibrillation no longer present Electronically Signed On 06-07-2020 9:55:07 CDT by Catrachito Rosado [email or web address] <ELECTRONICALLY SIGNED> By: Catrachito Rosado MD, [facility] 06/07/20 0955 0756 0756 Catrachito Rosado MD, [facility] /EPI
[2020-06-07 11:26] VITALS: BP 139/59
--- NOTE | 2020-06-07 16:55 | D ---
[facility] [address] [place] [address] DISCHARGE SUMMARY Name: GISSEL LYONS Room: [address]#: [id number] Admission: 06/05/20 Attend Phys: Rickey Caldera MD Discharge: 06/07/20 Date of : 34 Report #: [id number] THIS REPORT FOR: cc: Yamileth Rust. Yamileth Velazco. Rickey Gonzalez MD FAC ~ DISCHARGE DIAGNOSES: 1. Persistent atrial fibrillation. 2. Sick sinus syndrome. 3. Hypertension. 4. Hyperlipidemia. 5. Acute on chronic diastolic heart failure. PROCEDURES DURING HOSPITALIZATION: 1. Permanent pacemaker placement with atrial and ventricular lead placement. 2. DC cardioversion. 3. Sotalol loading. HOSPITAL COURSE: The patient was admitted to the hospital on 06/05/2020 and started on sotalol 80 mg twice daily. She was placed on equipment monitor phototypesetting. Daily EKGs were obtained to assure no significant prolongation of QT interval. The patient tolerated sotalol loading without difficulty. The day following admission to the hospital, the patient underwent permanent pacemaker placement with atrial and ventricular lead placement without complication. The patient is being discharged on 06/07/2020 uneventfully. DISCHARGE MEDICATIONS: Will include torsemide 20 mg p.o. daily, Protonix 40 mg p.o. at bedtime, sotalol 80 mg p.o. b.i.d., alprazolam 0.25 mg t.i.d. p.r.n., atorvastatin 40 mg daily, digoxin 0.125 mg daily, diltiazem 120 mg p.o. b.i.d., potassium chloride 20 mEq daily, Xarelto 20 mg daily. DISPOSITION: The patient will follow up in the office in 1 week for a site check. The patient will follow up in 4-6 weeks for pacemaker interrogation. <ELECTRONICALLY SIGNED> By: Rickey Caldera MD, [facility] 06/07/20 1655 0828 [id number] Caldera MD, FAC /nt
== END 2020-06-07 11:30 | disposition home or self-care (01) | DRG 242 ==
LOC: M.2W 08:42 → M.PRE 09:10 → M.2W 06-07 11:30
PROVIDERS: Internal Medicine; ADMIT Internal Medicine Cardiovascular Disease; ATTEND Internal Medicine Cardiovascular Disease
DX: I49.5 Sick sinus syndrome (principal); I50.33 Acute on chronic diastolic (congestive) heart failure; I48.19 Other persistent atrial fibrillation; I11.0 Hypertensive heart disease with heart failure; E78.5 Hyperlipidemia, unspecified; I48.0 Paroxysmal atrial fibrillation; Z79.01 Long term (current) use of anticoagulants

== ENCOUNTER → 2020-07-09 | Outpatient (CLI) | payer MEDICARE, OTHER ==
[~2020-07-09] MED LIST changes: +DIGOX125 MCG PO; +DILTIAZEM ER180 M2 PO; +KLOR-CON M2020 MEQ PO; +SORINE 80 MG TA80 M1 PO; +TORSEMIDE20 MG PO; +XANAX 0.25 MG0.25 MG PO; +XARELTO20 MG PO
[2020-07-09 11:02] VITALS: BP 126/65
[2020-07-09 11:15] LABS: HEMATOCRIT 32.8 % (37.0-47.0); MCH 34.1 pg (26.0-34.0); MCHC 33.4 g/dL (28.0-37.0); MCV 102.1 fL (80.0-100.0); MPV 7.1 fl. (7.2-11.1); RBC 3.21 mil/uL (4.20-5.00); RDW-CV 14.2 % (10.5-14.5); WBC 6.9 thou/uL (4.0-11.0)
[2020-07-09 11:26] LABS: APTT 34.6 Seconds (25.0-31.3); INR 1.5; PROTIME 15.6 Seconds (9.20-11.50)
[2020-07-09 11:36] LABS: ALBUMIN 2.9 g/dL (3.4-5.0); CALCIUM 9.5 mg/dL (8.5-10.1); CREATININE 0.7 mg/dL (0.6-1.3); POTASSIUM 3.9 mmol/L (3.5-5.1); TOTAL BILIRUBIN 0.4 mg/dL (<0.1-1.0); TOTAL PROTEIN 7.1 g/dL (6.4-8.2)
[2020-07-09 12:05] VITALS: BP 109/37
[2020-07-09 12:09] VITALS: BP 138/59
[2020-07-09 12:13] VITALS: BP 128/59
[2020-07-09 12:30] VITALS: BP 93/39
--- NOTE | 2020-07-09 12:58 | EKG ---
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1930 Requested By: Rickey Caldera Order Number: [id number] Bladimir MD: Wander Sinclair Measurements Intervals [place] Rate: 87 P: ID: QRS: 15 QRSD: 105 T: -15 QT: 366 QTc: 441 Interpretive Statements Afib/flut and V-paced complexes No further rhythm analysis attempted due to paced rhythm RSR' in V1 or V2, right VCD or RVH Compared to ECG 06/07/2020 07:56:10 RSR' in V1 or V2 now present AV dual-paced complex(es) or rhythm no longer present Electronically Signed On 07-09-2020 12:57:53 CDT by Wander Sinclair [email or web address] <ELECTRONICALLY SIGNED> By: Wander Sinclair MD, [facility] 07/09/20 1257 1115 1115 Wander Sinclair MD, [facility] /EPI
[2020-07-09 13:00] VITALS: BP 130/47
--- NOTE | 2020-07-11 09:27 | CARD ---
[place] [address] CARDIAC CATH REPORT Name: GISSEL LYONS Room: [facility]#: [id number] Admission: 07/09/20 Attend Phys: Rickey Caldera MD Discharge: Date of : 32 Report #: [id number] THIS REPORT FOR: cc: Yamileth Rust. Yamileth Velazco. Rickey Gonzalez MD [facility] ~ DOC #: [id number] cc: ANDRESSA Rodríguez MD DATE OF SERVICE: 07/09/2020 CARDIAC PROCEDURE PROCEDURE: Direct current cardioversion. INDICATION: Persistent atrial fibrillation. DESCRIPTION OF PROCEDURE: After informed consent was obtained, the patient was brought to the cardiac holding area. The patient was given 2 mg of Versed and 25 mg of intravenous fentanyl for conscious sedation. Once the patient was adequately sedated, she was cardioverted from atrial fibrillation to normal sinus rhythm with a single biphasic shock of 300 joules. The patient tolerated the procedure well and without complication. IMPRESSION: 1. Persistent atrial fibrillation. 2. Successful direct current cardioversion to normal sinus rhythm. MD QUIANA [email or web address] <ELECTRONICALLY SIGNED> By: Rickey Caldera MD, [facility] 07/11/20 0927 1114 1407[facility] Caldera MD, FACC /nt
== END | disposition home or self-care (01) ==
LOC: M.CL 10:48
PROVIDERS: ATTEND Internal Medicine Cardiovascular Disease
DX: I48.19 Other persistent atrial fibrillation (principal); I11.0 Hypertensive heart disease with heart failure; I50.9 Heart failure, unspecified; Z98.890 Other specified postprocedural states; Z79.899 Other long term (current) drug therapy; Z79.01 Long term (current) use of anticoagulants; Z20.822 Contact with and (suspected) exposure to COVID-19

== ENCOUNTER → 2020-09-09 | Outpatient (CLI) | payer MEDICARE, OTHER ==
[2020-09-09 13:26] LABS: ALBUMIN 3.6 g/dL (3.4-5.0); CALCIUM 8.8 mg/dL (8.5-10.1); TOTAL BILIRUBIN 0.6 mg/dL (<0.1-1.0); TOTAL PROTEIN 6.7 g/dL (6.4-8.2)
== END ==
LOC: M.LAB 11:46
PROVIDERS: ATTEND Registered Nurse
DX: I50.32 Chronic diastolic (congestive) heart failure (principal)

== ENCOUNTER → 2020-10-01 | Outpatient (CLI) | payer MEDICARE, OTHER ==
[2020-10-01 11:20] LABS: CALCIUM 8.9 mg/dL (8.5-10.1); POTASSIUM 3.3 mmol/L (3.5-5.1)
== END ==
LOC: M.LAB 10:58
PROVIDERS: ATTEND Registered Nurse
DX: I48.0 Paroxysmal atrial fibrillation (principal); I50.32 Chronic diastolic (congestive) heart failure

== ENCOUNTER → 2020-10-23 | Outpatient (CLI) | payer MEDICARE, OTHER ==
[2020-10-23 14:23] LABS: CALCIUM 9.3 mg/dL (8.5-10.1); CREATININE 1.1 mg/dL (0.6-1.3)
== END ==
LOC: M.LAB 13:31
PROVIDERS: ATTEND Specialist
DX: E87.8 Other disorders of electrolyte and fluid balance, not elsewhere classified (principal); I48.0 Paroxysmal atrial fibrillation; I50.32 Chronic diastolic (congestive) heart failure

== ENCOUNTER → 2020-11-13 | Outpatient (CLI) | payer MEDICARE, OTHER ==
[2020-11-13 11:38] LABS: CREATININE 1.1 mg/dL (0.6-1.3); POTASSIUM 3.5 mmol/L (3.5-5.1)
== END ==
LOC: M.LAB 10:40
PROVIDERS: ATTEND Registered Nurse
DX: I50.32 Chronic diastolic (congestive) heart failure (principal); I48.0 Paroxysmal atrial fibrillation; E87.6 Hypokalemia

== ENCOUNTER → 2021-03-18 | Outpatient (CLI) | payer MEDICARE, OTHER ==
[2021-03-18 10:10] LABS: ABSOLUTE BASOPHILS 0.1 thou/uL (0.0-0.2); ABSOLUTE EOSINOPHILS 0.2 thou/uL (0.0-0.7); ABSOLUTE LYMPHOCYTES 1.3 thou/uL (0.8-5.3); ABSOLUTE NEUTROPHILS 8.1 thou/uL (1.6-8.1); BASOPHILS 0.7 %; EOSINOPHILS 2.2 %; HEMATOCRIT 31.1 % (37.0-47.0); HEMOGLOBIN 10.4 gm/dL (12.0-15.0); LYMPHOCYTES 11.7 %; MCH 30.5 pg (26.0-34.0); MCHC 33.5 g/dL (28.0-37.0); MONOCYTES 9.3 %; MPV 7.4 fl. (7.2-11.1); NUCLEATED RBCS 0 /100WBC; PLATELET COUNT* 250 thou/uL (150-400); POLYS 76.1 %; RBC 3.42 mil/uL (4.20-5.00); RDW-CV 14.2 % (10.5-14.5); WBC 10.7 thou/uL (4.0-11.0)
[2021-03-18 10:17] LABS: ALBUMIN 3.2 g/dL (3.4-5.0); ALKALINE PHOSPHATASE 72 U/L (46-116); ANION GAP 7 mmol/L (7-16); BUN 29 mg/dL (7-18); CALCIUM 9.1 mg/dL (8.5-10.1); CHLORIDE 101 mmol/L (98-107); CHOLESTEROL 128 mg/dL (<200); CO2 36 mmol/L (21-32); GLUCOSE 114 mg/dL (70-99); HDL CHOLESTEROL 53 mg/dL (>40); LDL CHOLESTEROL 43 mg/dL (<100); POTASSIUM 3.2 mmol/L (3.5-5.1); SGOT 16 U/L (15-37); SGPT 18 U/L (30-65); SODIUM 144 mmol/L (136-145); TC:HDL 2.4 Ratio (Not establshd); TOTAL BILIRUBIN 0.9 mg/dL (<0.1-1.0); TRIGLYCERIDE 164 mg/dL (<150); VLDL 33 mg/dL (<40)
[2021-03-18 10:35] LABS: SERUM ASSESSMENT CL
[2021-03-19 21:06] LABS: ANA INTERPRETATION Negative (())
== END ==
LOC: M.LAB 09:17
PROVIDERS: ATTEND Registered Nurse
DX: D48.5 Neoplasm of uncertain behavior of skin (principal); I48.0 Paroxysmal atrial fibrillation; E78.5 Hyperlipidemia, unspecified; R21 Rash and other nonspecific skin eruption

== ENCOUNTER → 2021-03-24 | Outpatient (CLI) | payer MEDICARE, OTHER | LOC: M.CT 09:29 | PROVIDERS: ATTEND Internal Medicine Cardiovascular Disease | DX: I70.293 Other atherosclerosis of native arteries of extremities, bilateral legs (principal); I70.0 Atherosclerosis of aorta; I48.21 Permanent atrial fibrillation; I50.32 Chronic diastolic (congestive) heart failure ==